=== PATIENT | male | born 1955 | race Caucasian/White ===

== ENCOUNTER 2020-07-04 14:28 | Inpatient (IN) | payer MEDICARE, OTHER ==
[~2020-07-04] VITALS: Ht 180.3 cm; Wt 48.7 kg
[2020-07-04] MEDS ORDERED: MVI, ADULT NO.4 WITH VIT K 10 ML, FOLIC ACID INJ 1 MG, THIAMINE INJ 100 MG in IV NORMAL... IV ONE (14:45)
--- NOTE | 2020-07-04 14:54 | PHYS DOC ---
Past History Past Medical History: COPD, GERD (RODOLFO SANCHEZ APRN) Adult General Chief Complaint Chief Complaint: FATIGUE HPI HPI Patient is a male patient with history of COPD current smoker, acid reflux, who presents to the ED today to be evaluated for generalized weakness/failure to thrive. Patient resides at home alone and the landlord's brother went to check with him, they found patient crawling on the floor and weak. Patient states his not had anything to eat or drink for couple days but has been drinking shots every day including 3 shots of Vodka yesterday. Denies any nausea, vomiting, diarrhea. (RODOLFO SANCHEZ APRN) Review of Systems Review of Systems Constitutional: Reports generalized weakness. Denies fever or chills [] Eyes: Denies change in visual acuity, redness, or eye pain [] HENT: Denies nasal congestion or sore throat [] Respiratory: Denies cough or shortness of breath [] Cardiovascular: No additional information not addressed in HPI [] GI: Denies abdominal pain, nausea, vomiting, bloody stools or diarrhea [] : Denies dysuria or hematuria [] Musculoskeletal: Denies back pain or joint pain [] Integument: Denies rash or skin lesions [] Neurologic: Denies headache, focal weakness or sensory changes [] All other systems were reviewed and found to be within normal limits, except as documented in this note. (RODOLFO SANCHEZ APRN) Current Medications Current Medications Current Medications Medications (Trade) Dose Ordered Sig/Marilyn Start Time Stop Time Status Last Admin Dose Admin Multivitamins/ Minerals 10 ml/ Folic Acid 1 mg/ Thiamine HCl 100 mg/Sodium Chloride 1,011.3 ml @ 1,000.187 mls/hr 1X ONCE 07/04/20 14:45 07/04/20 15:45 (RODOLFO SANCHEZ APRN) Allergies Allergies Allergies Coded Allergies Type Severity Reaction Last Updated Verified Penicillins Allergy Unknown 07/04/20 Yes codeine Allergy Unknown 07/04/20 Yes (RODOLFO SANCHEZ APRN) Physical Exam Physical Exam Constitutional: Thin appearing emaciated patient, no acute distress, non-toxic appearance. Patient appears unkept. HENT: Normocephalic, atraumatic, bilateral external ears normal, oropharynx moist, no oral exudates, nose normal. [] Eyes: PERRLA, EOMI, conjunctiva normal, no discharge. [] Neck: Normal range of motion, no tenderness, supple, no stridor. [] Cardiovascular:Heart rate regular rhythm, no murmur [] Lungs & Thorax: Currently coughing. Bilateral breath sounds clear to auscultation [] Abdomen: Bowel sounds normal, soft, no tenderness, no masses, no pulsatile masses. [] Skin: Warm, dry, no erythema, no rash. [] Back: No tenderness, no CVA tenderness. [] Extremities: No tenderness, no cyanosis, no clubbing, ROM intact, no edema. [] Neurologic: Alert and oriented X 3, normal motor function, normal sensory function, no focal deficits noted. Cranial nerves II through XII intact Psychologic: Affect normal, judgement normal, mood normal. [] (RODOLFO SANCHEZ APRN) EKG EKG [address] Singletary sinus rhythm, HR 90, normal axis and rate no STEMI (RODOLFO SANCHEZ APRN) Radiology/Procedures Radiology/Procedures []PROCEDURE: PORTABLE CHEST 1V EXAM: CT Head without IV contrast INDICATION: Reason: weakness / Spl. Instructions: / History: TECHNIQUE: Multi-detector row CT images were obtained of the head without the use of IV contrast. All CT scans performed at this facility utilize dose optimization techniques as appropriate to the exam, including the following: Automated exposure control and adjustment of the mA and/or KV according to patient size (this includes techniques or standardized protocols for targeted exams where dose is indication/reason for exam). COMPARISON: None FINDINGS: BRAIN PARENCHYMA: No evidence of acute intraparenchymal hemorrhage or infarct. No abnormal parenchymal density or mass. VENTRICLES & EXTRA-AXIAL SPACES: Ventricles are within normal limits. Basilar cisterns are patent. No pathologic extra-axial fluid collection or mass. ORBITS: Orbital contents are unremarkable. SINUSES: Visualized paranasal sinuses and mastoid air cells are clear. OSSEOUS & SOFT TISSUES: Calvarium and skull base are intact. IMPRESSION: No acute intracranial pathology. EXAM: CT HEAD WO CONTRAST, PORTABLE CHEST 1V INDICATION: Reason: weakness / Spl. Instructions: / History: . TECHNIQUE: Single view COMPARISON: None FINDINGS: The heart size is normal. The great vessels appear unremarkable. There is no hilar or mediastinal mass. The lungs are hyperlucent in a pattern consistent with underlying COPD. Hyperlucency is especially notable at the right greater than left lung apices and at the left lung base.. There is no pleural effusion or pneumothorax. There are no significant osseous abnormalities. Old mid shaft right clavicular fracture is noted. IMPRESSION: Bullous emphysema with no single view radiographic evidence of active cardiopulmonary disease. Electronically signed by: María Contreras MD (07/04/2020 3:20 PM) [id number] DICTATED AND SIGNED BY: MARÍA CONTRERAS MD DATE: 07/04/20 1520 CC: RODOLFO SANCHEZ APRN; PCP,UNKNOWN ~ (RODOLFO SANCHEZ APRN) Heart Score Risk Factors: Risk Factors: DM, Current or recent (<one month) smoker, HTN, HLP, family history of CAD, obesity. Risk Scores: Risk Factors: DM, Current or recent (<one month) smoker, HTN, HLP, family history of CAD, obesity. (RODOLFO SANCHEZ APRN) Course & Med Decision Making Course & Med Decision Making Pertinent Labs and Imaging studies reviewed. (See chart for details) This is a 65-year-old male patient presenting to the ED today from home, patient lives at home alone and was found with his landlord's brother crawling on his feet because he is weak and not able to get around. Patient states has not had anything significant to eat or drink for acouple days though he states he has been drinking vodka shots daily including [address] of the head is negative for any acute findings, chest x-ray is negative. Hemoglobin 11.1 hematocrit 33.3, and no history of anemia. Sodium 127, potassium 1.8. Glucose 79. Magnesium 1.5. Alcohol level [address] Bond who accepted patient for evaluation. Patient was started on potassium in the ED, Dr. Bond stated he will take over patient's orders including potassium management. (RODOLFO SANCHEZ APRN) Course & Med Decision Making I discussed the care of the patient with the [facility]IO/PA. I also personally saw patient and repeated certain aspects of history and physical exam. I oversaw ED management until eventual transfer to [facility] for continued inpat ient care. I agree with the findings and plan of care as documented in the note above. (GRISEL SINGLETARY DO) Mathewon Disclaimer Dragon Disclaimer This electronic medical record was generated, in whole or in part, using a voice recognition dictation system. (RODOLFO SANCHEZ APRN) Departure Departure: Impression: Primary Impression: Generalized weakness Additional Impressions: Hyponatremia Failure to thrive Hypomagnesemia Disposition: 09 ADMITTED INPT THIS HOSP Admitting Physician: Hunter Bond (GRISEL SINGLETARY DO) Condition: STABLE Referrals: PCP,UNKNOWN (PCP) Problem Qualifiers Additional Impressions: Failure to thrive Failure to thrive age range: in adult Qualified Codes: R62.7 - Adult failure to thrive RODOLFO SANCHEZ APRN Jul 04, 2020 14:54 GRISEL SINGLETARY DO Jul 05, 2020 21:09
[2020-07-04 15:16] LABS: BASO # 0.1 x10^3/uL (0.0-0.2); BASO % 1 % (0-3); EOS % 1 % (0-3); HEMATOCRIT 33.3 % (39.0-53.0); HEMOGLOBIN 11.3 g/dL (13.0-17.5); LYMPH % 22 % (24-48); MEAN CORPUSCULAR HEMOGLOBIN 37 pg (25-35); MEAN CORPUSCULAR HGB CONC 34 g/dL (31-37); MEAN CORPUSCULAR VOLUME 110 fL (79-100); MONO # 0.7 x10^3/uL (0.0-1.1); MONO % 8 % (0-9); NEUT # 6.3 x10^3uL (1.8-7.7); NEUT % 69 % (31-73); PLATELET COUNT 265 x10^3/uL (140-400); RED BLOOD COUNT 3.03 x10^6/uL (4.30-5.70); WHITE BLOOD COUNT 9.1 x10^3/uL (4.0-11.0)
--- NOTE | 2020-07-04 15:22 | RAD ---
EXAM: CT Head without IV contrast INDICATION: Reason: weakness / Spl. Instructions: / History: TECHNIQUE: Multi-detector row CT images were obtained of the head without the use of IV contrast. All CT scans performed at this facility utilize dose optimization techniques as appropriate to the exam, including the following: Automated exposure control and adjustment of the mA and/or KV according to patient size (this includes techniques or standardized protocols for targeted exams where dose is indication/reason for exam). COMPARISON: None FINDINGS: BRAIN PARENCHYMA: No evidence of acute intraparenchymal hemorrhage or infarct. No abnormal parenchymal density or mass. VENTRICLES & EXTRA-AXIAL SPACES: Ventricles are within normal limits. Basilar cisterns are patent. No pathologic extra-axial fluid collection or mass. ORBITS: Orbital contents are unremarkable. SINUSES: Visualized paranasal sinuses and mastoid air cells are clear. OSSEOUS & SOFT TISSUES: Calvarium and skull base are intact. IMPRESSION: No acute intracranial pathology. EXAM: CT HEAD WO CONTRAST, PORTABLE CHEST 1V INDICATION: Reason: weakness / Spl. Instructions: / History: . TECHNIQUE: Single view COMPARISON: None FINDINGS: The heart size is normal. The great vessels appear unremarkable. There is no hilar or mediastinal mass. The lungs are hyperlucent in a pattern consistent with underlying COPD. Hyperlucency is especially notable at the right greater than left lung apices and at the left lung base.. There is no pleural effusion or pneumothorax. There are no significant osseous abnormalities. Old mid shaft right clavicular fracture is noted. IMPRESSION: Bullous emphysema with no single view radiographic evidence of active cardiopulmonary disease. Electronically signed by: Anamaria Contreras MD (07/04/2020 3:20 PM) [id number]
--- NOTE | 2020-07-04 15:26 | EKG ---
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
[2020-07-04 15:38] LABS: ALBUMIN/GLOBULIN RATIO 0.8 (1.0-1.7); CREATININE 0.8 mg/dL (0.7-1.3); GFR 97.3; MAGNESIUM 1.5 mg/dL (1.8-2.4); TOTAL BILIRUBIN 1.7 mg/dL (0.2-1.0); TOTAL PROTEIN 6.9 g/dL (6.4-8.2)
[2020-07-04 15:40] LABS: POTASSIUM 1.8 mmol/L (3.5-5.1)
[2020-07-04] MEDS ORDERED: POTASSIUM CL 40MEQ IN 0.9%NACL 1,000 ML IV ONE (16:00)
[2020-07-04] MEDS ORDERED: POTASSIUM CHLORIDE 20 MEQ TABLET.ER. PO ONE (16:00)
[2020-07-04] MEDS ORDERED: MAGNESIUM SULFATE 1GM 100 ML IV ONE (16:00)
[2020-07-04 16:28] LABS: BILIRUBIN,URINE NEG (NEG); CLARITY,URINE CLEAR; COLOR,URINE YELLOW; GLUCOSE,URINE NEG (NEG)
[2020-07-04 16:29] LABS: NITRITE,URINE NEG (NEG)
[2020-07-04] MEDS ORDERED: ONDANSETRON PF 4 MG/2 ML VIAL. IVP PRN (16:30)
[2020-07-04 16:33] LABS: BACTERIA,URINE MANY /HPF (0-FEW); RBC,URINE 0 /HPF (0-2)
--- NOTE | 2020-07-04 17:58 | HP ---
ADMIT DATE: 07/04/2020 ATTENDING PHYSICIAN: Juvenal Ferrell MD CHIEF COMPLAINT: Weakness. HISTORY OF PRESENT ILLNESS: The patient is a 65-year-old gentleman, chronic alcoholic, who presented to the ED profoundly weak and failed to thrive. He drinks actively, lives alone. His landlord's brother went to check on him, they found crawling on the floor, too weak to get up. He has not had anything to eat for the last couple of days, but has been drinking whiskey including earlier this morning. No nausea, vomiting or diarrhea. No hematemesis. In the ED, he was found to have a potassium level 1.8 mEq, sodium 127, bilirubin is 1.7 mg%. On exam, he is quite cachectic and weak. He is clinically dehydrated. He is admitted then for further treatment of his ravages to chronic alcoholism. PAST MEDICAL HISTORY: Significant for chronic alcoholism, COPD, and gastroesophageal reflux disease. ALLERGIES: HE HAS ALLERGIES TO PENICILLIN AND CODEINE, exact reactions unclear. SOCIAL HISTORY: He is a smoker and drinker as noted. He denies any diagnosed history of depression. FAMILY HISTORY: Unobtainable. REVIEW OF SYSTEMS: Significant for generalized weakness. He is found ____ his own stool. He is quite disheveled. His socks are filthy. He has toenails that have not been trimmed in several years. All other systems reviewed and turned to be negative. PHYSICAL EXAMINATION: GENERAL: When I saw him, this is a very disheveled gentleman appearing older than stated age. VITAL SIGNS: Initial vital signs in the ED showed a blood pressure of 101/75, pulse 85 and regular, oxygen saturation 96% on room air, temperature is 98.0 degrees Fahrenheit, weight is 47 kilograms, which amounts to about 102 pounds. HEENT: Head is without trauma. Pupils are reactive. Sclerae are nonicteric. Oropharynx clear. Mucous membranes dry. NECK: Supple, no bruits. LUNGS: Otherwise, clear to auscultation. CARDIOVASCULAR: Showed distant heart tones. No gallops. ABDOMEN: Soft, scaphoid, nontender. I did not palpate the liver span below the right costal margin. Bowel sounds are hypoactive. EXTREMITIES: Showed significant muscle wasting, weakness. He is nonambulatory. He is quite disheveled and hygiene is definitely ____. NEUROLOGIC: Flat affect and nonambulatory. He is aware of what is going on. PERTINENT LABORATORY STUDIES: His sodium is 127 mEq, potassium 1.8 mEq per liter. Creatinine is 0.8 mg/dL. Cardiac enzymes negative. Transaminases unremarkable. Bilirubin total is 1.7 mg%. Alcohol level was 62 mg/dL. Hemoglobin 11.3 g, white count 9100. The obligatory CT of the head showed no acute strokes or intracranial pathology. The chest x-ray on admission showed hyperexpansion and COPD changes without any acute infiltrate. Heart size within normal limits. ASSESSMENT: 1. A 65-year-old gentleman with acute on chronic alcoholism. 2. Dehydration. 3. Electrolyte abnormalities with severe hypokalemia and hyponatremia. 4. Chronic obstructive pulmonary disease. 5. Generalized debilitation. 6. Underlying depression. 7. Neglect. PLAN: 1. Admit to the inpatient unit. 2. IV hydration with saline and potassium supplementation. 3. Serial chemistries. 4. Diet as tolerated. 5. Social service consult to address discharge planning. 6. Diet as tolerated. JUVENAL FERRELL MD DR: YANDEL/shavonne JOB#: [id number] / [id number]
--- NOTE | 2020-07-04 18:45 | NUR ---
The patient, MARIELOS WHITE, 65 y/o, M admitted by JUVENAL FERRELL MD, was given written information regarding hospital policies, unit procedures and contact persons. Pt arrived on previous shift to room 113. Per report, pt was covered in feces and was immediately assisted to shower. Pt lives at home alone and has not been caring for himself appropriately. Hx of ETOH abuse. Pt with a critical potassium of 1.8. Orders received to replace K+. Pt placed on telemetry, showing Sinus Tach with rate in the 100's. Pt A/Ox4, but poor historian. POC discussed, V/U. Call light in reach. Valuables were checked and logged.
[2020-07-04] MEDS ORDERED: FLU VACC QS 2020-21(6MOS+)/PF 0.5 ML SYRINGE. VAX IM ONE (20:00)
[2020-07-04] MEDS: POTASSIUM CHLORIDE 20 MEQ TABLET.ER. PO SCH (20:07)
[2020-07-04] MEDS: POTASSIUM CL 40MEQ IN 0.9%NACL 1,000 ML IV SCH (20:09)
[2020-07-04 20:14] VITALS: BP 107/77
[2020-07-05 00:05] VITALS: BP 93/61
[2020-07-05] MEDS: POTASSIUM CL 40MEQ IN 0.9%NACL 1,000 ML IV SCH ×2 (05:45→15:57)
[2020-07-05 06:03] VITALS: BP 95/66
[2020-07-05 07:02] LABS: CALCIUM 7.7 mg/dL (8.5-10.1); CREATININE 0.6 mg/dL (0.7-1.3); GFR 135.6
[2020-07-05 07:17] LABS: POTASSIUM 2.8 mmol/L (3.5-5.1)
[2020-07-05] MEDS: MAGNESIUM SULFATE 1GM 100 ML IV SCH (08:08)
[2020-07-05] MEDS: POTASSIUM CHLORIDE 20 MEQ TABLET.ER. PO SCH ×2 (08:09→16:00)
[2020-07-05] MEDS ORDERED: FLU VACC QS 2020-21(6MOS+)/PF 0.5 ML SYRINGE. VAX IM ONE (09:00)
[2020-07-05 11:07] VITALS: BP 100/67
--- NOTE | 2020-07-05 11:42 | NUR ---
NSG NOTE; PT STATES THAT HE ONLY DRINKS 2-3 SHOTS 2-3 TIMES WEEKLY. WILL CONTINUE TO MONITOR FOR ALCOHOL WITHDRAWAL S/S
[2020-07-05 15:14] VITALS: BP 91/63
[2020-07-05 20:27] VITALS: BP 93/62
[2020-07-05 22:49] VITALS: BP 89/59
[2020-07-06] VITALS (7 sets, daily range): BP systolic 74–97; BP diastolic 53–66
[2020-07-06] MEDS: POTASSIUM CL 40MEQ IN 0.9%NACL 1,000 ML IV SCH ×3 (02:08→21:45)
--- NOTE | 2020-07-06 02:48 | PN ---
DATE: 07/05/2020 ATTENDING PHYSICIAN: Dr. Ferrell. SUBJECTIVE: The patient is alert, he is sober. He is quite calm. There is no impending delirium tremens at this time. OBJECTIVE FINDINGS: VITAL SIGNS: Blood pressure today is 95/66 mmHg, pulse 81 and regular, temperature 98.1 degrees Fahrenheit, oxygen saturation 99% on room air. HEENT: Head is without trauma. Pupils are reactive. Sclerae nonicteric. Oropharynx is clear. He has very poor dental repair. NECK: Supple. No stridor. LUNGS: Otherwise clear. CARDIOVASCULAR: Showed regular heart tones. ABDOMEN: Soft, no guarding, no masses. EXTREMITIES: Without edema. He has significant muscle wasting. His fingernails and toenails have not been trimmed for years. He is nonambulatory at this time. LABORATORY DATA: Potassium on admission was 1.8 mEq per liter, it is now up to 2.8 mEq; sodium is improved to 131 mEq per liter. Creatinine 0.6 mg/dL. Nonfasting blood sugar 79. Transaminases were normal. ASSESSMENT: 1. A 65-year-old gentleman with acute and chronic alcoholism. 2. Dehydration. 3. Electrolyte abnormalities with severe hypokalemia and hyponatremia. 4. Chronic obstructive pulmonary disease. 5. Generalized debilitation. 6. Underlying depression. 7. Horrible neglect. PLAN: 1. Continue IV hydration with saline and potassium supplementation. 2. Oral potassium supplementation. 3. Magnesium replacement. 4. Diet as tolerated. 5. Serial chemistries. 6. security services specialist consult to address discharge planning. JUVENAL FERRELL MD DR: YANDEL/shavonne JOB#: [id number] / [id number]
[2020-07-06 06:32] LABS: CALCIUM 7.9 mg/dL (8.5-10.1); CREATININE 0.5 mg/dL (0.7-1.3); GFR 167.4
[2020-07-06] MEDS: POTASSIUM CHLORIDE 20 MEQ TABLET.ER. PO SCH ×2 (08:33→17:00)
[2020-07-06] MEDS: MAGNESIUM SULFATE 1GM 100 ML IV SCH (08:34)
[2020-07-06] MEDS: PANTOPRAZOLE 40 MG TABLET. PO SCH (10:25)
--- NOTE | 2020-07-06 15:12 | NUR ---
NURSING NOTE: VITAL SIGN CHANGE PT BP 74/56 AND 78/53, CHECKED IN BILATERAL ARMS. PT STATED HE IS DIZZY WHEN HE GETS UP. DR. GHASSAN LOPEZ. WILL CONTINUE TO MONITOR. NICOLE HODGES
--- NOTE | 2020-07-06 15:27 | NUR ---
VITAL CHANGE ORDERS RECEIVED FOR 1L NS BOLUS. FLUIDS STARTED. WILL CONTINUE TO MONITOR. NICOLE HODGES
[2020-07-06] MEDS ORDERED: IV NORMAL SALINE 1,000ML 1,000 ML IV ONE (15:30)
--- NOTE | 2020-07-07 01:21 | PN ---
DATE: 07/06/2020 ATTENDING PHYSICIAN: Dr. Ferrell. SUBJECTIVE: The patient is complaining of indigestion and reflux. I explained to him, this is due to alcoholic gastritis. He is sober, but he is in a most unfavorable move this morning. He is not very cooperative. There is no impending delirium tremens at this time. OBJECTIVE FINDINGS: VITAL SIGNS: Potassium was replaced up to 4.0 mEq per liter. Blood pressure is still marginal at 86/58, pulse 75 and regular, temperature 98.5 degrees Fahrenheit, oxygen saturation 92% on room air. HEENT: Head is without trauma. Pupils are reactive. Sclerae nonicteric. Oropharynx is clear. NECK: Supple, no bruits. LUNGS: Otherwise clear. CARDIOVASCULAR: Showed regular heart tones. ABDOMEN: Soft, no guarding. EXTREMITIES: Without edema. His fingernails and toenails have not been trimmed for years. He is nonambulatory at this time. LABORATORY DATA: Admission potassium was 1.8 mEq per liter, yesterday was up to 2.8, today is up to 4.0 mEq per liter. Creatinine is stable. Sugars are adequate. ASSESSMENT: 1. A 65-year-old gentleman with acute on chronic alcoholism. 2. Dehydration, rehydrated. 3. Electrolyte abnormalities with severe hypokalemia and hyponatremia. 4. Chronic obstructive pulmonary disease. 5. Generalized debilitation. 6. Underlying depression. 7. Horrible neglect. 8. He is still hypotensive from dehydration. PLAN: 1. Continue IV hydration. 2. Oral and potassium supplementation. 3. Magnesium replacement. 4. Diet as tolerated. 5. Serial chemistries. 6. caseworker protective services consult to address discharge planning. JUVENAL FERRELL MD DR: YANDEL/shavonne JOB#: [id number] / [id number]
[2020-07-07 07:14] LABS: CALCIUM 7.5 mg/dL (8.5-10.1); CREATININE 0.4 mg/dL (0.7-1.3); GFR 216.6; POTASSIUM 4.4 mmol/L (3.5-5.1)
[2020-07-07] MEDS: PANTOPRAZOLE 40 MG TABLET. PO SCH (07:58)
[2020-07-07] MEDS: MAGNESIUM SULFATE 1GM 100 ML IV SCH (07:59)
[2020-07-07] MEDS: POTASSIUM CHLORIDE 20 MEQ TABLET.ER. PO SCH (08:00)
[2020-07-07] MEDS: POTASSIUM CL 40MEQ IN 0.9%NACL 1,000 ML IV SCH ×2 (11:15→21:15)
[2020-07-07 11:21] VITALS: BP 93/63
[2020-07-07 15:11] VITALS: BP 127/85
[2020-07-07 18:59] VITALS: BP 90/58
[2020-07-07] MEDS: ACETAMINOPHEN 500 MG TABLET PO PRN (20:41)
[2020-07-07 23:54] VITALS: BP 93/58
--- NOTE | 2020-07-07 23:59 | PN ---
DATE: 07/07/2020 ATTENDING PHYSICIAN: Dr. Ferrell. SUBJECTIVE: Alert and sober. He is a little more sober this morning. No obvious distress. OBJECTIVE FINDINGS: VITAL SIGNS: Blood pressure is marginal still 97/66, pulse 77 and regular, temperature 98.6 degrees Fahrenheit, oxygen saturation 94% on room air. HEENT: Head is without trauma. Pupils are reactive. Sclerae nonicteric. Oropharynx clear. NECK: Supple. LUNGS: Clear. CARDIOVASCULAR: Showed regular heart tones. No gallops. ABDOMEN: Soft. EXTREMITIES: Without edema. NEUROLOGIC: Alert. He is nonambulatory. He has no focal deficits. SKIN: Otherwise, warm and dry. LABORATORY DATA: Potassium level has been improved to normal at 4.4 mEq. ASSESSMENT: 1. A 65-year-old gentleman with acute on chronic alcoholism. 2. Dehydration, still with marginal blood pressures. 3. Severe hypokalemia, corrected. 4. Hyponatremia, corrected. 5. Chronic obstructive pulmonary disease. 6. Generalized debilitation. 7. Horrible neglect. 8. Underlying depression. PLAN: 1. I will continue IV hydration. 2. Oral potassium supplementation as noted. 3. Diet as tolerated. 4. Serial chemistry. 5. surgical services director to address discharge planning. JUVENAL FERRELL MD DR: YANDEL/shavonne JOB#: [id number] / [id number]
[2020-07-08] MEDS: ACETAMINOPHEN 500 MG TABLET PO PRN (04:02)
[2020-07-08 05:15] VITALS: BP 137/71
--- NOTE | 2020-07-08 06:20 | NUR ---
Pt up to [facility] every 1-2 hours. He struggles with urge incontinence of bowel and bladder. Pt uses walker to steady himself when walking or to turn and pivot. Pt c/o pain in lower back, worse with movement. Tx with Tylenol and rest. Will continue to monitor.
[2020-07-08] MEDS: POTASSIUM CL 40MEQ IN 0.9%NACL 1,000 ML IV SCH (07:15)
[2020-07-08] MEDS: PANTOPRAZOLE 40 MG TABLET. PO SCH (08:18)
[2020-07-08 11:41] VITALS: BP 105/68
[2020-07-08 15:54] VITALS: BP 113/76
[2020-07-08 19:19] VITALS: BP 116/81
--- NOTE | 2020-07-08 20:57 | PN ---
DATE: 07/08/2020 ATTENDING PHYSICIAN: Dr. Ferrell. SUBJECTIVE: The patient is alert. He is cooperative this morning, he feels better. OBJECTIVE FINDINGS: VITAL SIGNS: Blood pressure is up today to 137/71 mmHg, pulse of 73 and regular, temperature 98.0 degrees Fahrenheit, oxygen saturation 98% on room air. HEENT: Head is without trauma. Pupils are reactive. Sclerae nonicteric. Oropharynx is clear. NECK: Supple, no bruits. LUNGS: Good breath sounds. CARDIOVASCULAR: Irregular heart tones. No gallops. ABDOMEN: Soft. EXTREMITIES: Without edema. NEUROLOGIC: Focally alert. No impending withdrawals. He is stronger today. ASSESSMENT: 1. A 65-year-old gentleman with acute on chronic alcoholism. 2. Dehydration, rehydrated. Blood pressure is improved. 3. Severe hypokalemia, corrected. 4. Hyponatremia, corrected. 5. Chronic obstructive pulmonary disease. 6. Generalized debilitation. 7. Horrible neglect. PLAN: 1. We can stop IV fluids. 2. Oral potassium supplement as ordered. 3. Diet as ordered. 4. Tentative plans for going home tomorrow. He has refused any higher level of care. JUVENAL FERRELL MD DR: YANDEL/shavonne JOB#: [id number] / [id number]
[2020-07-08 23:14] VITALS: BP 127/81
[2020-07-09 05:12] VITALS: BP 152/82
[2020-07-09] MEDS: PANTOPRAZOLE 40 MG TABLET. PO SCH (07:28)
--- NOTE | 2020-07-09 10:02 | DS ---
DATE OF DISCHARGE: 07/09/2020 DATE OF DISCHARGE: 07/09/2020. ATTENDING PHYSICIAN: Dr. Ferrell. FINAL DISCHARGE DIAGNOSES: 1. Acute on chronic alcoholism. 2. Dehydration, rehydrated. 3. Severe hypokalemia and hyponatremia. 4. Chronic obstructive pulmonary disease. 5. Generalized debilitation. 6. Underlying depression. 7. Alcoholic gastritis. 8. Neglect. HISTORY AND PHYSICAL: The patient is a 65-year-old gentleman, chronic alcoholic, presented to the ED. His landlord found him crawling on the floor, unable to walk. He is quite disheveled. His toenails and fingernails have not been trimmed in years. He had a potassium level on admission of 1.8 mEq per liter and a sodium 127 mEq per liter. PHYSICAL EXAMINATION: Please see my dictated note. PERTINENT LABORATORY AND X-RAY STUDIES: Chemistry panel on admission showed a sodium of 127, repeated was 131, 132 and 134 the next 3 days. Potassium was replaced up to 2.8, 4.0 and 4.4 mEq per liter, respectively. Creatinine stayed stable at 0.4 mg/dL. Magnesium was replaced. Total bilirubin is 1.7. Cardiac enzymes negative for coronary ischemia. Urinalysis unremarkable. Admission ethyl alcohol level was 62. Hemoglobin maintained 11.3 grams with a white count of 9100. COURSE IN THE HOSPITAL: The patient received 4 full days of intravenous IV fluids with improvement of his blood pressure. Initially, he had been low. Prior to discharge, it was up to 127/81, pulse is 94 and regular. He was afebrile. His oxygen saturation is 97%. We replaced his potassium and magnesium. Diet was advanced and I treated him with Nexium for resolution of his epigastric pain. On the sixth hospital day, he wanted to go home. We tried to get him to extended care facility. He declined. Therefore, I wrote him a script for Nexium 40 mg p.o. daily and Percocet 10/325 one p.o. q. 6 hours p.r.n. chronic pain. He will follow up with his primary care physician as scheduled. Strong encouragement to avoid further alcohol use, whether or not he quits drinking is to be seen. The patient was then discharged from our hospital in stable condition with explicit instructions and followup care. JUVENAL FERRELL MD DR: YANDEL/shavonne JOB#: [id number] / [id number]
[2020-07-09 10:44] VITALS: BP 106/66
--- NOTE | 2020-07-09 11:17 | NUR ---
DISCHARGE NOTE-Pt discharged to home with home health services at 1112. PIV discontinued. Wheeled to door in w/c, no O2 or other devices in use. Discharge papers sent with patient, as well as prescriptions. Pt denies any questions regarding discharge plan, et verbalizes understanding of instructions. Pt declined to sign DC sheet after review of DC info, as his "hands are too shaky." All possessions are sent with patient.
== END 2020-07-09 11:12 | disposition home health service (06) | DRG 641 ==
LOC: ER 14:28 → 1 SOUTH 15:51 → ER 18:25
PROVIDERS: ADMIT Hospitalist; ATTEND Hospitalist
DX: E86.0 Dehydration (principal); E44.0 Moderate protein-calorie malnutrition; R64 Cachexia; Z68.1 Body mass index [BMI] 19.9 or less, adult; K29.20 Alcoholic gastritis without bleeding; E87.1 Hypo-osmolality and hyponatremia; E87.6 Hypokalemia; E83.42 Hypomagnesemia; F10.20 Alcohol dependence, uncomplicated; F17.200 Nicotine dependence, unspecified, uncomplicated; F32.9 Major depressive disorder, single episode, unspecified; J43.9 Emphysema, unspecified; K21.9 Gastro-esophageal reflux disease without esophagitis; R62.7 Adult failure to thrive; I95.9 Hypotension, unspecified; G89.29 Other chronic pain; Z88.8 Allergy status to other drugs, medicaments and biological substances; Z88.0 Allergy status to penicillin; Z79.899 Other long term (current) drug therapy; Z60.2 Problems related to living alone
CPT/HCPCS: 36415; 70450; 71045; 80048; 80053; 81001; 82553; 83690; 83735; 84443; 84484; 85025; 85610; 85730; 87077; 87086; 90471; 90686; 93005; 96365; 96367; 99406; G0480; J3475; 97110; 97116; 97530; 97535; 99285-25; J7030

== ENCOUNTER 2020-09-17 02:25 | Inpatient (IN) | payer MEDICARE, MEDICAID ==
[~2020-09-17] VITALS: Ht 180.3 cm; Wt 47.3 kg
--- NOTE | 2020-09-17 02:29 | PHYS DOC ---
Past History Past Medical History: Alcoholism, Anemia, Arthritis, COPD, Depression, GERD, Other Past Surgical History: No Surgical History Smoking: Cigarettes Alcohol Use: Heavy General Adult HPI: HPI: "..Oh... I don't know.. just weak.. ..cold...hurt all over..bones..muscle hurt..shaky...".." to weak to move..".. " I an't drinking anything.. the last 3 days.. " Patient is a 65 year old male who presents with increased malaise, arthralgia, myalgia, weakness and fatigue. Pt. neighbor went to the bring him some food. Neighbor found him on his couch laying in stool. Patient was unable to stand or or set up because of weakness. Patient appeared to be having shaking chills. Patient has a past medical history of chronic alcohol abuse. Patient states he drinks until he can drink no more, usually bourbon. Patient denies drinking tonight. Patient lives alone. Patient has a previous admission in June for failure to thrive and profound weakness. Patient denies any nausea or vomiting or diarrhea. However apparently has had incontinence of stool. Has multiple layers of stool caked on his body. Stool almost covers every part of his body at least partially. Stool appears to be different colors and from different stooling episodes. Patient is conversant does not know the day or month. Patient does weakly move all extremities on request. Pt. needs assistance even to just set up. Patient gives a past history of COPD, GERD, chronic alcohol abuse, dehydration, hypokalemia, hyponatremia, cachectic and severe malnutrition. Review of Systems: Review of Systems: Constitutional: Complaints of chills Eyes: Denies change in visual acuity HENT: Denies nasal congestion or sore throat Respiratory: Complaints of shortness of breath Cardiovascular: Denies chest pain or edema GI: Denies abdominal pain, nausea, vomiting, bloody stools or diarrhea : Denies dysuria Musculoskeletal: Complaints of generalized pain muscles and bones. Integument: Denies rash Neurologic: Denies headache, focal weakness or sensory changes Endocrine: Denies polyuria or polydipsia Lymphatic: Denies swollen glands Psychiatric: Admit to depression, but denies suicidal ideation Family History: Family History: Not currently available Current Medications: Current Meds: See nursing for home meds Allergies: Allergies: Allergies Coded Allergies Type Severity Reaction Last Updated Verified Penicillins Allergy Unknown 07/04/20 Yes codeine Allergy Unknown 07/04/20 Yes Physical Exam: PE: Constitutional: Moderate acute distress, chronically ill and mal nourished in appearance. [] Long unkept melton and hair laced with stool. Disheveled. HENT: Normocephalic, atraumatic, bilateral external ears normal, oropharynx dry,, no oral exudates, nose normal. Very poor dentition. Eyes: PERRLA, EOMI, conjunctiva pale, no discharge. Loss of periorbital fat. Neck: Normal range of motion, no tenderness, supple, no stridor. [] Cardiovascular: Tachycardia heart rate regular rhythm, no murmur [] Lungs & Thorax: Bilateral breath sounds equal apex with scattered wheezes on auscultation [] Abdomen: Bowel sounds decreased, soft, no tenderness, no masses, no pulsatile masses. [] Skin: Warm, dry, , no rash. Very poor turgor. Sacral erythema-but no obvious complete breakdown of skin at sacrum. Appears to have at least some fecal material almost every inch of his body. Very long toenails and fingernails embedded with stool obviously not trimmed for possibly years. Extremities: Generalized tenderness, no cyanosis, no clubbing, ROM intact, no edema. Arthritic changes. Muscle loss-overall generalized malnutrition in appearance Neurologic: Alert and oriented to name and knows he is in a hospital,did not know date, moves all extremities on request but weakly, decreased distal plantar sensation Psychologic: Affect flat, judgement appears impaired, mood depressed affect. Denies suicidal ideation. EKG: EKG: My interpretation of EKG shows a irregular rhythm and ED regular rate. Does have low voltage, ventricle strain. Overall rhythm appears to be A. fib with a ventricular rate of 96. Radiology/Procedures: Radiology/Procedures: [][address] [address] IMAGING REPORT Signed PATIENT: MARIELOS WHITE LACCOUNT: [id number] : 1955 LOCATION: ER AGE: 65 SEX: M EXAM STATUS: REG ER ORD. PHYSICIAN: FOUZIA MCKENZIE MD REASON: dyspnea PROCEDURE: PORTABLE CHEST 1V XR CHEST 1V Clinical Indication: Reason: dyspnea Comparison: AP chest, July 04, 2020. Findings: Atherosclerotic aortic arch. The cardiomediastinal silhouette is normal. There is upper lung emphysema. The lungs are hyperexpanded. Lungs are clear. There is no pneumothorax. No pleural effusion is appreciated. No acute bone abnormality. IMPRESSION: 1. No acute cardiopulmonary process. 2. COPD. Electronically signed by: Jerald Persaud MD (09/17/2020 4:50 AM) [facility] DICTATED AND SIGNED BY: JERALD PERSAUD MD DATE: 09/17/20 0448 CC: FOUZIA MCKENZIE MD; PCP,NO ~MTH0 0 Heart Score: HEART Score for Chest Pain: HEART Score for Chest Pain Response (Comments) Value History Moderately Suspicious 1 ECG Nonspecific Repolarizatio 1 Age >45 - < 65 1 Risk Factors 1 or 2 Risk Factors 1 Troponin < Normal Limit 0 Total 4 Risk Factors: Risk Factors: DM, Current or recent (<one month) smoker, HTN, HLP, family history of CAD, obesity. Risk Scores: Score 0 - 3: 2.5% MACE over next 6 weeks - Discharge Home Score 4 - 6: 20.3% MACE over next 6 weeks - Admit for Clinical Observation Score 7 - 10: 72.7% MACE over next 6 weeks - Early Invasive Strategies Course & Med Decision Making: Course & Med Decision Making Pertinent Labs and Imaging studies reviewed. (See chart for details) Critical care 90 minutes Discussed presentation, testing and tx. plan with Dr. Bond. Request 1 gm Mag. IV. PO potassium. Impression: 1. Severe Weakness and Fatigue 2. Hypokalemia 1.8 3. Hyponatremia 128 4. Anemia hemoglobin 11.6 with macrocytic indices 104 and thrombocytopenia 75 5. Afib 6. Elevated Lactic Acid 4.1 7. UTI- Cath. Urine > 40 WBC 8. Elevated D-dimer 0.90 9. DM = glucose 183 10. Self Neglect 11. Severe Malnutrition Alb. 2.6 12. Peripheral Neuropathy 13. Hx. alcohol abuse- ( Reports no bourbon or alcohol intake for last 3 days- ETOH ,<10) 14. High risk for re- admission [] Dragon Disclaimer: Dragon Disclaimer: This electronic medical record was generated, in whole or in part, using a voice recognition dictation system. Departure Departure: Referrals: PCP,NO (PCP) Scripts No Active Prescriptions or Reported Meds Dragon Disclaimer This chart was dictated in whole or in part using Voice Recognition software in a busy, high-work load, and often noisy Emergency Department environment. It may contain unintended and wholly unrecognized errors or omissions. Dragon Disclaimer This chart was dictated in whole or in part using Voice Recognition software in a busy, high-work load, and often noisy Emergency Department environment. It may contain unintended and wholly unrecognized errors or omissions. FOUZIA MCKENZIE MD Sep 17, 2020 02:29
[2020-09-17] MEDS ORDERED: IV RINGERS SOLUTION,LACTATED 1,000 ML IV SCH (03:00)
[2020-09-17] MEDS ORDERED: FOLIC ACID 1 MG TABLET PO ONE (03:15)
[2020-09-17] MEDS ORDERED: MVI, ADULT NO.4 WITH VIT K 10 ML, THIAMINE INJ 100 MG in IV RINGERS SOLUTION,LACTATED 1... IV ONE (03:15)
[2020-09-17 04:02] LABS: BASO % 0 % (0-3); EOS % 0 % (0-3); HEMATOCRIT 32.9 % (39.0-53.0); HEMOGLOBIN 11.1 g/dL (13.0-17.5); LYMPH # 1.4 x10^3/uL (1.0-4.8); LYMPH % 22 % (24-48); MEAN CORPUSCULAR HEMOGLOBIN 35 pg (25-35); MEAN CORPUSCULAR HGB CONC 34 g/dL (31-37); MEAN CORPUSCULAR VOLUME 104 fL (79-100); MONO # 0.2 x10^3/uL (0.0-1.1); MONO % 3 % (0-9); NEUT % 75 % (31-73); PLATELET COUNT 75 x10^3/uL (140-400); RED BLOOD COUNT 3.17 x10^6/uL (4.30-5.70); RED CELL DISTRIBUTION WIDTH 19.5 % (11.5-14.5); WHITE BLOOD COUNT 6.6 x10^3/uL (4.0-11.0)
[2020-09-17 04:22] LABS: BARBITURATES NEG (NEG); BENZODIAZEPINES POS (NEG); CANNABINOIDS NEG (NEG); COCAINE NEG (NEG); METHADONE NEG (NEG); OPIATES NEG (NEG); PHENCYCLIDINE NEG (NEG)
[2020-09-17 04:27] LABS: ANISOCYTOSIS SLIGHT; MICROCYTOSIS SLIGHT; PLT ESTIMATE DECREASED (ADEQUATE)
[2020-09-17 04:29] LABS: BACTERIA,URINE MANY /HPF (0-FEW); BILIRUBIN,URINE NEG (NEG); CLARITY,URINE CLOUDY; COLOR,URINE YELLOW; GLUCOSE,URINE NEG (NEG); NITRITE,URINE NEG (NEG); RBC,URINE OCC /HPF (0-2); SQUAMOUS EPITHELIAL CELL,UR OCC /LPF; WBC,URINE >40 /HPF (0-4)
[2020-09-17] MEDS ORDERED: THIAMINE 200 MG/2 ML VIAL. IV ONE (04:29)
[2020-09-17 04:36] LABS: AMPHETAMINE/METHAMPHETAMINE NEG (NEG)
[2020-09-17 04:37] LABS: ALBUMIN 2.6 g/dL (3.4-5.0); CALCIUM 8.4 mg/dL (8.5-10.1); CREATININE 1.2 mg/dL (0.7-1.3); DIRECT BILIRUBIN 0.4 mg/dL (0.0-0.2); MAGNESIUM 1.8 mg/dL (1.8-2.4); TOTAL BILIRUBIN 0.7 mg/dL (0.2-1.0); TOTAL PROTEIN 6.3 g/dL (6.4-8.2)
[2020-09-17] MEDS ORDERED: cefTRIAXone SODIUM 1 GM VIAL ONE (04:42)
[2020-09-17] MEDS ORDERED: IV NORMAL SALINE 50ML 50 ML ONE (04:42)
--- NOTE | 2020-09-17 04:46 | EKG ---
[address] [address] Test Date: 2020-09-17 Test Time: 03:52:12 Pat Name: MARIELOS WHITE Department: Room: Gender: M Executive Chairman Of The Board: EVELYN : 1955 Requested By: FOUZIA MCKENZIE Order Number: [id number] Reading MD: Measurements Intervals [place] Rate: 96 P: OR: QRS: 103 QRSD: 108 T: -17 QT: 390 QTc: 500 Interpretive Statements IRREGULAR RHYTHM, NO P-WAVE FOUND RIGHTWARD AXIS R-S TRANSITION ZONE IN V LEADS DISPLACED TO THE LEFT LOW LIMB LEAD VOLTAGE QRS(T) CONTOUR ABNORMALITY CONSISTENT WITH HIGH LATERAL INFARCT PROBABLY OLD ST & T ABNORMALITY, CONSIDER INFERIOR ISCHEMIA OR LEFT VENTRICULAR STRAIN ABNORMAL ECG RI6.02 No previous ECG available for comparison
[2020-09-17 04:52] LABS: BGAS PH 7.54 (7.35-7.46)
[2020-09-17 04:52] LABS: POTASSIUM 1.8 mmol/L (3.5-5.1)
--- NOTE | 2020-09-17 04:52 | RAD ---
XR CHEST 1V Clinical Indication: Reason: dyspnea Comparison: AP chest, July 04, 2020. Findings: Atherosclerotic aortic arch. The cardiomediastinal silhouette is normal. There is upper lung emphysem a. The lungs are hyperexpanded. Lungs are clear. There is no pneumothorax. No pleural effusion is olga reciated. No acute bone abnormality. IMPRESSION: 1. No acute cardiopulmonary process. 2. COPD. Electronically signed by: Gm Persaud MD (09/17/2020 4:50 AM) [facility] SHELBY COUNTYDebby
[2020-09-17] MEDS ORDERED: IV RINGERS SOLUTION,LACTATED 1,000 ML IV ONE (05:00)
[2020-09-17] MEDS ORDERED: ACETAMINOPHEN 325 MG TABLET PO PRN (05:15)
[2020-09-17] MEDS ORDERED: ONDANSETRON PF 4 MG/2 ML VIAL. IVP PRN (05:15)
[2020-09-17] MEDS ORDERED: POTASSIUM CHLORIDE 20 MEQ TABLET.ER. PO ONE (06:00)
[2020-09-17] MEDS ORDERED: POTASSIUM CHLORIDE 20MEQ 100 ML IV SCH (06:00)
[2020-09-17] MEDS ORDERED: MAGNESIUM SULFATE 1GM 100 ML IV ONE (06:00)
[2020-09-17 07:44] LABS: INFLUENZA A PATIENT NEGATIVE (NEGATIVE); INFLUENZA B PATIENT NEGATIVE (NEGATIVE)
[2020-09-17] MEDS ORDERED: IPRATRPIUM/ALBUTEROL 0.5/2.5MG 3 ML NEBU. NEB SCH (08:00)
[2020-09-17] MEDS ORDERED: APIXABAN 2.5 MG TABLET PO SCH (09:00)
[2020-09-17 09:39] VITALS: BP 85/49
--- NOTE | 2020-09-17 10:38 | HP ---
ADMIT DATE: 09/17/2020 ATTENDING PHYSICIAN: Dr. Ferrell. CHIEF COMPLAINT: Weakness. HISTORY OF PRESENT ILLNESS: The patient is a 65-year-old gentleman who lives alone. He is a chronic alcoholic. We had him on several occasions before. He has been most uncooperative in the past and refused to go to a fdc. He has burned many bridges and there is no family or friends to take care of him. He lives alone. Evidently, a neighbor found him on his couch, lying in his own stool and urine. He has been unable to get up to go to the bathroom and he just lies there and continues to abuse alcohol. I am not aware of, who is procuring his alcohol for him. He has some contacts that is able to get him alcohol, it is probably at least 2 days since his last drink. In the hospital when I saw him, he was in the midst of a witnessed partial complex seizure. He came about by the time I saw him. He states he is cold, he hurts all over. He has shakes. He has not had anything to eat for the last 3 days. He is clinically dehydrated, quite emaciated with a weight of about 102 pounds. His toenails have not been clipped for several years. He has significant physical findings of neglect. PAST MEDICAL HISTORY: From the chart indicates he has COPD, gastroesophageal reflux disease, chronic alcoholism, dehydration, hypokalemia, cachexia and severe protein-calorie malnutrition. CURRENT MEDICATIONS: None. DRUG ALLERGIES: PENICILLIN AND CODEINE, exact reactions unclear. FAMILY HISTORY: Unobtainable. REVIEW OF SYSTEMS: Significant for the problems that brought him here. He could not give further history. PHYSICAL EXAMINATION: GENERAL: When I saw him, this is a pale, cachectic patient who is just recovering from a witnessed seizure. INITIAL VITAL SIGNS: Showed a blood pressure 90/60, temperature 97.1 degrees Fahrenheit, pulse 90 and regular, respirations 18 and shallow, oxygen saturation 96% on room air. HEENT: Head is without trauma. Pupils are reactive. Sclerae are nonicteric. Orbits are sunken. NECK: Supple. No stridor or rhonchi. CARDIOVASCULAR: Showed distant heart tones. No gallops. LUNGS: Shallow respirations. No rhonchi. ABDOMEN: Scaphoid, nontender. Hypoactive bowel sounds. EXTREMITIES: Showed no edema. He has significant muscle wasting of arms and legs. SKIN: Cool and pale. He has significant onychomycosis. NEUROLOGIC: Witnessed seizure the patient came around, his speech is very faint and weak. He is completely bedridden. The Gibbs catheter is in place. LABORATORY AND DIAGNOSTIC STUDIES: Chest x-ray on admission showed COPD changes, no infiltrates or decompensation. His sodium on admission of 128 mEq per liter, potassium 1.8 mEq, creatinine is 1.2 mg/dL. Arterial blood gas showed a pH of 7.54, pCO2 of 27, pO2 of 135 mmHg. Hemoglobin is 11.1 g in a hemoconcentrated state, white count 6600, platelets are 75,000. ASSESSMENT: 1. A 65-year-old gentleman, chronic alcoholic with significant neglect. 2. Profound dehydration. 3. Hypokalemia due to alcoholism. 4. Hyponatremia. 5. Chronic obstructive pulmonary disease. 6. Significant protein-calorie malnutrition. 7. Alcohol withdrawal seizures witnessed. PLAN: 1. Admit to the inpatient unit. 2. IV hydration. 3. Diet as tolerated. 4. Empiric Keppra while in the hospital. 5. Serial chemistries. 6. Saline replacement. 7. Potassium and magnesium replacement. 8. His prognosis is quite guarded at this time, there is no guardian. He has not been responsive to any type of social media director needs in the past. JUVENAL FERRELL MD DR: YANDEL/shavonne JOB#: [id number] / [id number]
--- NOTE | 2020-09-17 10:43 | NUR ---
ADMIT NOTE-PT ARRIVES VIA EMS AT 0720. HE IS NOT UTILIZING OXYGEN, BUT HAS A PORRAS CATHETER THAT WAS PLACED IN ED. PT IS TAKEN STRAIGHT TO THE SHOWER, HE ARRIVED TO ED COVERED IN FECES. REDNESS IS PRESENT TO HIS BUTTOCKS AND GROIN, BUT NO AREAS ARE OPEN AT THIS TIME. THERE ARE PIV'S IN (B)UE. PT IS A&O X2.
[2020-09-17 11:09] VITALS: BP 88/65
[2020-09-17] MEDS: IPRATROPIUM/ALBUTEROL 20/100mcg/INH INHALER. INH SCH ×3 (12:00→21:07)
--- NOTE | 2020-09-17 14:50 | NUR ---
PT UNCLE LISSY [facility] CALLED TODAY. REPORTS THAT HE HAS DPOA FOR PT. PHONE NUMBER FOR CONTACT IS [phone].
[2020-09-17 15:25] VITALS: BP 74/52
[2020-09-17 19:22] VITALS: BP 89/53
[2020-09-17 22:52] VITALS: BP 95/67
[2020-09-18] VITALS (7 sets, daily range): BP systolic 68–109; BP diastolic 46–74
--- NOTE | 2020-09-18 05:45 | NUR ---
Pt awake in bed at change of shift, watching TV. Pt ate HS snack independently. Pt had small soft incont BM during night. Calmoseptine applied to buttocks and groin, redness noted. Pt slept well most of night.
[2020-09-18 06:29] LABS: BASO % 0 % (0-3); EOS # 0.1 x10^3/uL (0.0-0.7); EOS % 2 % (0-3); HEMATOCRIT 22.4 % (39.0-53.0); HEMOGLOBIN 7.8 g/dL (13.0-17.5); LYMPH # 1.8 x10^3/uL (1.0-4.8); LYMPH % 27 % (24-48); MEAN CORPUSCULAR HEMOGLOBIN 36 pg (25-35); MEAN CORPUSCULAR HGB CONC 35 g/dL (31-37); MEAN CORPUSCULAR VOLUME 104 fL (79-100); MONO # 0.3 x10^3/uL (0.0-1.1); MONO % 4 % (0-9); NEUT # 4.5 x10^3uL (1.8-7.7); NEUT % 67 % (31-73); PLATELET COUNT 47 x10^3/uL (140-400); RED BLOOD COUNT 2.16 x10^6/uL (4.30-5.70); RED CELL DISTRIBUTION WIDTH 19.4 % (11.5-14.5); WHITE BLOOD COUNT 6.6 x10^3/uL (4.0-11.0)
[2020-09-18 06:37] LABS: CALCIUM 7.7 mg/dL (8.5-10.1); CREATININE 0.7 mg/dL (0.7-1.3); GFR 113.5
[2020-09-18 06:39] LABS: POTASSIUM 2.2 mmol/L (3.5-5.1)
[2020-09-18] MEDS ORDERED: MAGNESIUM SULFATE 1GM 100 ML IV ONE (07:30)
[2020-09-18 07:56] LABS: PLT ESTIMATE DECREASED (ADEQUATE); TARGET CELLS PRESENT
[2020-09-18] MEDS: IPRATROPIUM/ALBUTEROL 20/100mcg/INH INHALER. INH SCH ×4 (08:42→20:00)
[2020-09-18] MEDS: POTASSIUM CHLORIDE 20 MEQ TABLET.ER. PO SCH ×2 (08:44→17:05)
[2020-09-18] MEDS: IV NORMAL SALINE 1,000ML 1,000 ML IV SCH (11:14)
--- NOTE | 2020-09-18 21:13 | PN ---
DATE: 09/18/2020 ATTENDING PHYSICIAN: Dr. Ferrell. SUBJECTIVE: More alert today. He is wanting juices. He denied any significant discomfort. OBJECTIVE FINDINGS: VITAL SIGNS: Blood pressure this morning is 109/74, pulse 81 and regular, temperature 97.6 degrees Fahrenheit, oxygen saturation 99% on room air. HEENT: Head is without trauma. Pupils are reactive. Orbits are still sunken. Oropharynx, poor dental repair. NECK: Supple. No bruits or stridor. LUNGS: Shallow respirations. CARDIOVASCULAR: Showed distant heart tones. ABDOMEN: Soft, no guarding. EXTREMITIES: Showed significant muscle wasting and cachexia. SKIN: Warm and dry. NEUROLOGIC: Fairly alert. He is bedridden. He has no focal neurologic deficits. PERTINENT LABORATORY DATA: Potassium is up to 2.2 mEq/L, sodium 133, creatinine 0.7 mg percent. Hemoglobin is down to 7.8 grams from hemodelusional state. White count of 6600. ASSESSMENT: 1. A 65-year-old gentleman, chronic alcoholic with significant neglect. 2. Profound dehydration. 3. Refractory hypokalemia due to hypomagnesemia and associated alcoholism. 4. Hyponatremia, corrected. 5. Chronic obstructive pulmonary disease. 6. Significant protein-calorie malnutrition. 7. Alcohol withdrawal seizures. PLAN: 1. Continue IV hydration. 2. Advance diet as tolerated. 3. Empiric Keppra while in the hospital. 4. Serial chemistry. 5. Potassium and magnesium replacement. 6. Guarded prognosis. He has no family or guardian at this time. JUVENAL FERRELL MD DR: YANDEL/shavonne JOB#: [id number] / [id number]
[2020-09-18] MEDS ORDERED: IV NORMAL SALINE 1,000ML 1,000 ML IV ONE (22:45)
[2020-09-19 00:17] VITALS: BP 73/57
[2020-09-19] MEDS: IV NORMAL SALINE 1,000ML 1,000 ML IV SCH (00:35)
--- NOTE | 2020-09-19 01:04 | NUR ---
Pts BP was 68/50 w/ a MAP of 56 at 2100. Pt appeared lethargic and complained of generalized pain. MD called. 1L bolus ordered and given. Pts BP is now 73/57 w/ a MAP of 62. Pt is now more alert. Pt is resting comfortably in bed w/ call light in reach. Will continue to monitor.
[2020-09-19 05:37] VITALS: BP 92/58
[2020-09-19 06:26] LABS: CALCIUM 7.2 mg/dL (8.5-10.1); CREATININE 0.7 mg/dL (0.7-1.3); GFR 113.5
[2020-09-19 06:30] LABS: POTASSIUM 2.8 mmol/L (3.5-5.1)
[2020-09-19] MEDS: IPRATROPIUM/ALBUTEROL 20/100mcg/INH INHALER. INH SCH ×4 (08:00→20:00)
[2020-09-19] MEDS: POTASSIUM CHLORIDE 20 MEQ TABLET.ER. PO SCH ×2 (08:03→17:39)
[2020-09-19] MEDS: POTASSIUM CHLORIDE 10MEQ 100 ML IV SCH ×4 (09:30→12:15)
[2020-09-19 11:04] VITALS: BP 76/66
[2020-09-19] MEDS ORDERED: IV NORMAL SALINE 500ML 500 ML IV ONE (14:45)
[2020-09-19] MEDS: POTASSIUM CL 40MEQ IN 0.9%NACL 1,000 ML IV SCH (15:05)
--- NOTE | 2020-09-19 19:17 | PN ---
DATE: 09/19/2020 SUBJECTIVE: The patient is resting, slightly propped up in bed, in no apparent respiratory distress. On questioning him, he stated that he is having aches and pains all over. He stated that his neighbor comes and helps him maintain himself. He is unable to walk. He has been crawling to get to the bathroom and in fact his neighbor found him on his couch lying in his stool. He was unable to stand or sit up because of weakness. He was found to be extremely hypokalemic with a potassium of 1.8, has also lactic acidosis. PHYSICAL EXAMINATION: GENERAL: When I examined him this afternoon, he was pale, cachectic, but no jaundice, cyanosis or thyromegaly. No jugular venous distention. No lower limb edema. VITAL SIGNS: His heart rate was 82, blood pressure was 76/66, temperature was 98.7, respiratory rate was 16, and oxygen saturation was 96% on room air. HEAD, EYES, EARS, NOSE AND THROAT: Normocephalic, atraumatic. NECK: Supple. HEART: Showed normal first and second heart sounds. No gallop, rub or murmur. CHEST: Clear to auscultation. No crepitation or rhonchi. ABDOMEN: Scaphoid, soft, nontender. NEUROLOGIC: He was awake, alert, responding appropriately. All cranial nerves are intact. He moves upper extremities __ lower extremities, extreme cachexia, muscle weakness. His body mass index only 14.5 kilograms square meter. His intake over the last 24 hours was 2461, output was 1500. LABORATORY DATA: As of this morning, his white cell count was 6600, hemoglobin 7.8, hematocrit 22, MCV 104 and platelet count of 47,000. His chemistry this morning showed a serum sodium 136, potassium 2.8, chloride 104, bicarbonate 25, anion gap of 7, BUN 13, creatinine 0.7. Estimated GFR was 113 mL per minute. His glucose was 92, calcium was 7.2. His prothrombin time, INR and aPTT are normal. D-dimer slightly elevated. Urinalysis essentially showed that he has more than 40 wbc's and large amount of leukocyte esterase. His urine toxic screen was positive for benzodiazepine and his coronavirus was not detectable. His influenza A and B were negative. His urine culture has grown more than 100,000 colony forming units per mL of Gram-positive cocci identified as Staphylococcus epidermidis. ASSESSMENT: This is a 65-year-old gentleman with severe cachexia, profound weakness, dehydration, severe hypokalemia, hyponatremia was corrected, chronic obstructive pulmonary disease and severe protein-calorie malnutrition. PLAN: To continue with IV fluid, continue with potassium supplement and I probably start him on IV antibiotic also for his Staphylococcus epidermidis and decide on further management accordingly. FREDERIC HAMILTON MD DR: SUNDEEP/shavonne JOB#: [id number] / [id number]
[2020-09-19 19:29] LABS: CALCIUM 7.2 mg/dL (8.5-10.1); CREATININE 0.6 mg/dL (0.7-1.3); GFR 135.6; MAGNESIUM 1.1 mg/dL (1.8-2.4); POTASSIUM 4.2 mmol/L (3.5-5.1)
[2020-09-19 20:11] VITALS: BP 66/48
[2020-09-19 22:21] VITALS: BP 62/49
[2020-09-20] MEDS: POTASSIUM CL 40MEQ IN 0.9%NACL 1,000 ML IV SCH (01:25)
[2020-09-20 05:53] VITALS: BP 75/55
[2020-09-20 06:28] LABS: HEMATOCRIT 22.9 % (39.0-53.0); HEMOGLOBIN 7.7 g/dL (13.0-17.5); RED BLOOD COUNT 2.17 x10^6/uL (4.30-5.70); RED CELL DISTRIBUTION WIDTH 19.4 % (11.5-14.5); WHITE BLOOD COUNT 7.2 x10^3/uL (4.0-11.0)
[2020-09-20 06:44] LABS: ALBUMIN 1.7 g/dL (3.4-5.0); ALBUMIN/GLOBULIN RATIO 0.7 (1.0-1.7); CALCIUM 7.2 mg/dL (8.5-10.1); CREATININE 0.5 mg/dL (0.7-1.3); GFR 167.4; POTASSIUM 4.9 mmol/L (3.5-5.1); TOTAL BILIRUBIN 0.1 mg/dL (0.2-1.0); TOTAL PROTEIN 4.3 g/dL (6.4-8.2)
[2020-09-20] MEDS: POTASSIUM CHLORIDE 20 MEQ TABLET.ER. PO SCH (08:00)
[2020-09-20] MEDS: IPRATROPIUM/ALBUTEROL 20/100mcg/INH INHALER. INH SCH ×2 (08:32→13:09)
[2020-09-20 10:15] VITALS: BP 92/68
[2020-09-20] MEDS ORDERED: VANCOMYCIN PER PHARMACY MC PRN (11:15)
[2020-09-20] MEDS ORDERED: VANCOMYCIN 1.25 GM in IV NORMAL SALINE 250ML 250 ML IV ONE (12:00)
[2020-09-20] MEDS ORDERED: IV NORMAL SALINE 1,000ML 1,000 ML IV SCH (13:00)
[2020-09-20] MEDS ORDERED: MAGNESIUM SULFATE 2GM 50 ML IV ONE (14:00)
--- NOTE | 2020-09-20 14:54 | DS ---
DATE OF DISCHARGE: 09/20/2020 HOSPITAL COURSE: The patient is a 65-year-old male patient who apparently lives alone and he apparently burned many bridges and there is no family or friends to take care of him. His neighbor found him in his couch lying in his own stool and urine, had been unable to get up to go to the bathroom and he just lies there and continues to abuse alcohol. Initial evaluation showed that he was extremely dehydrated and he was hyponatremic with profound hypokalemia and lactic acidosis. He had also seizures initially, so he was treated with Keppra. He was rehydrated and his serum sodium and potassium has normalized. He was more receptive to go to the alf facility and he was accepted at [facility]. As he remained hemodynamically stable and all his lab work has normalized, a decision was made to discharge him to continue the process of rehabilitation and perhaps long-term care. PHYSICAL EXAMINATION: GENERAL: When I saw him today, he was extremely cachectic, pale, not jaundiced or cyanosed. No lymphadenopathy, no thyromegaly. No jugular venous distention or limb edema. VITAL SIGNS: Her heart rate was 93, blood pressure was 92/68, temperature was 97.7, respiratory rate was 16, and oxygen saturation was 93%. HEAD, EYES, EARS, NOSE AND THROAT: Showed normocephalic, atraumatic. NECK: Supple. HEART: Showed normal first and second heart sounds. No gallop, rub or murmur. CHEST: Clear to auscultation. No crepitation or rhonchi. ABDOMEN: Slightly distended, soft, nontender. NEUROLOGIC: He is more awake, alert, responding appropriately. All cranial nerves intact. He moves extremities without difficulty, although he is mostly bedbound. He has marked muscle wasting and weakness. He is extremely cachectic with body mass index of only 14.5 kilograms per squared meter. His intake over the last 24 hours was 2100, output was 900. LABORATORY DATA: This morning showed a serum sodium 137, potassium 4.9, chloride 107, bicarbonate 25, anion gap of 5, BUN 10, creatinine 0.5, estimated GFR was 167 mL per minute. His glucose was 81, calcium was 7.2, magnesium was 1. Total bilirubin, AST, ALT, alkaline phosphatase were normal. Total protein was 4.3, albumin was 1.7. His white cell count was 7200, hemoglobin 7.7, hematocrit 22, MCV 106 and platelet count 72,000. His prothrombin time, INR and aPTT were normal. D-dimer is slightly elevated. Urinalysis showed a large amount of leukocyte esterase and more than 40 wbc's and his toxic screen was positive for benzodiazepine. His urine culture grew more than 100,000 colony forming units per mL of Gram-positive cocci identified as Staphylococcus epidermidis. His blood cultures are negative. FINAL DISCHARGE DIAGNOSES: Alcohol abuse, dehydration and profound weakness and severe hypokalemia, hyponatremia, hypomagnesemia, chronic obstructive pulmonary disease, severe protein-calorie malnutrition. FREDERIC HAMILTON MD DR: SUNDEEP/shavonne JOB#: [id number] / [id number]
[2020-09-20 15:31] VITALS: BP 71/54
--- NOTE | 2020-09-20 17:40 | NUR ---
pt discharged to [facility] via ems, report called to facility. pt alert and oriented, vitals stable. all belongings sent with ems.
[2020-09-20] MEDS ORDERED: levETIRAcetam 500 MG TABLET PO SCH (21:00)
[2020-09-21] MEDS ORDERED: VANCOMYCIN 750 MG in IV NORMAL SALINE 250ML 250 ML IV SCH (12:00)
== END 2020-09-20 17:40 | DRG 640 ==
LOC: ER 02:25 → 1 SOUTH 05:56
PROVIDERS: ADMIT Hospitalist; ATTEND Internal Medicine
DX: E86.0 Dehydration (principal); E43 Unspecified severe protein-calorie malnutrition; F10.239 Alcohol dependence with withdrawal, unspecified; N39.0 Urinary tract infection, site not specified; R64 Cachexia; G40.509 Epileptic seizures related to external causes, not intractable, without status epilepticus; E87.1 Hypo-osmolality and hyponatremia; E87.6 Hypokalemia; D64.9 Anemia, unspecified; D69.6 Thrombocytopenia, unspecified; E11.9 Type 2 diabetes mellitus without complications; E83.42 Hypomagnesemia; G62.9 Polyneuropathy, unspecified; I48.91 Unspecified atrial fibrillation; J44.9 Chronic obstructive pulmonary disease, unspecified; Z87.891 Personal history of nicotine dependence; F32.9 Major depressive disorder, single episode, unspecified; K21.9 Gastro-esophageal reflux disease without esophagitis; M19.90 Unspecified osteoarthritis, unspecified site; Z20.822 Contact with and (suspected) exposure to COVID-19; Z88.8 Allergy status to other drugs, medicaments and biological substances
CPT/HCPCS: 36415; 36600; 51702; 71045; 80048; 80053; 80076; 80307; 81001; 82550; 82803; 83605; 83690; 83735; 83880; 84443; 84484; 85025; 85027; 85379; 85610; 85730; 86140; 87040; 87077; 87086; 87804; 93005; 96365; 96366; 96368; 99292; G0480; J0696; J1953; J3370; J3475; J3480; J7040; J7050; J7120; U0003; 97110; 97530; 99291-25; J7030

== ENCOUNTER 2020-10-03 09:16 | Emergency (ER) | payer MEDICARE, MEDICAID ==
[~2020-10-03] VITALS: Ht 180.3 cm; Wt 47.3 kg
[2020-10-03 09:18] VITALS: BP 85/59
--- NOTE | 2020-10-03 09:25 | PHYS DOC ---
Past History Past Medical History: Alcoholism, Anemia, Arthritis, COPD, Depression, GERD, Other Past Surgical History: No Surgical History Smoking: Cigarettes Alcohol Use: Heavy General Adult EDM: Chief Complaint: MECHANICAL FALL HPI: HPI: History gained from patient and EMS. Patient is a 65-year-old male with history of alcohol abuse who presents with chief complaint of nonsyncopal fall. Patient currently resides at [facility] and rehab. He was hospitalized to our facility proximally 2 weeks ago for alcohol withdrawal and dehydration. He has since been discharged to his rehab facility. EMS were called to his facility after a nonsyncopal fall that occurred just prior to arrival. Patient states he was walking from his bed to the bathroom when he tripped and fell. He did strike his head. Denies LOC. Does not take blood thinners. Does note some posterior head pain. Denies any new back or neck pain. Denies shortness of breath or chest pain. Has not taken medication prior to arrival. Unsure of last tetanus vaccine. Denies seizure-like activity. Review of Systems: Review of Systems: Constitutional: Denies fever or chills Eyes: Denies change in visual acuity HENT: Denies nasal congestion or sore throat Respiratory: Denies cough or shortness of breath Cardiovascular: Denies chest pain or edema GI: Denies abdominal pain, nausea, vomiting, bloody stools or diarrhea : Denies dysuria Musculoskeletal: Positive for fall Integument: Denies rash Neurologic: Denies headache, focal weakness or sensory changes Endocrine: Denies polyuria or polydipsia Lymphatic: Denies swollen glands Psychiatric: Denies depression or anxiety Allergies: Allergies: Allergies Coded Allergies Type Severity Reaction Last Updated Verified Penicillins Allergy Unknown 07/04/20 Yes codeine Allergy Unknown 07/04/20 Yes Physical Exam: PE: Physical Exam Trauma: Primary Survey: Airway: Intact. Speaks in normal voice and phonation. Breathing: Breath sounds are clear and equal bilaterally. Circulation: Regular rhythm, 2+ and symmetric radial, DP and PT pulses. Disability: GCS on arrival was 15. Pupils 3 mm, ERRL Exposure: Complete exposure obtained and described in detail below. Secondary Survey: General: Awake, alert, appropriate, and in no acute distress HENT: 2 cm laceration to the left posterior occiput. TMs clear bilaterally, no hemotympanum. No periorbital tenderness or deformity. No obvious craniofacial trauma. Midface is stable. No apparent dental or tongue/oropharyngeal injury. No septal hematoma. Neck: C-spine: no midline tenderness. Without step-off, deformity, abrasion, ecchymosis, or other signs of trauma. Paraspinal musculature with no tenderness and/or hypertonicity. Eyes: Pupils 3 mm ERRL, EOMI grossly, no evidence of ocular trauma, conjunctivae normal Respiratory: CTAB without wheezing, rhonchi, or rales. No distress. Chest wall with no tenderness to palpation. No crepitus, ecchymosis, or flail segment pres ent. Cardiovascular: Regular rhythm without murmurs noted. 2+ and symmetric radial, DP and PT pulses. GI: Soft, non-tender, non-distended Musculoskeletal: T-spine: no midline tenderness. Without step-off, deformity, abrasion, ecchymosis, or other signs of trauma. Paraspinal musculature with no tenderness and/or hypertonicity. L-spine: no midline tenderness. Without step-off, deformity, abrasion, ecchymosis, or other signs of trauma. Paraspinal musculature with no tenderness and/or hypertonicity. RUE: Active ROM, no obvious deformity, no gross weakness or sensory deficits, warm & well-perfused LUE: Active ROM, no obvious deformity, no gross weakness or sensory deficits, warm & well-perfused RLE: Active ROM, no obvious deformity, no gross weakness or sensory deficits, warm & well-perfused LLE: Active ROM, no obvious deformity, no gross weakness or sensory deficits, warm & well-perfused Integument: Without abrasions, contusions, or lacerations. Neurologic: GCS on arrival as noted above. No obvious focal motor or sensory deficits on examination. Gait not assessed due to acuity of trauma assessment. Current Patient Data: Vital Signs: Vital Signs Date Time Temp Pulse Resp B/P (MAP) Pulse Ox O2 Delivery O2 Flow Rate FiO2 10/03/20 09:18 98.0 99 16 85/59 (68) 99 Room Air EKG: EKG: [] Radiology/Procedures: Radiology/Procedures: [address] [address] IMAGING REPORT Signed PATIENT: MARIELOS WHITE LACCOUNT: [id number] : 1955 LOCATION: ER AGE: 65 SEX: M EXAM STATUS: REG ER ORD. PHYSICIAN: SHAILA CRISOSTOMO DO REASON: fall PROCEDURE: CT HEAD AND CERVICAL SPINE WO CT brain without contrast, CT C-spine without contrast. HISTORY: Fall CT brain CT scan of brain was done without contrast. Comparison is made with a study from July 04. There is diffuse atrophy. There is no intracranial hemorrhage or subdural hematoma. There is no mass effect or shift of the midline. Ventricles are within normal limits in size for the degree of atrophy. An acute CVA is not identified. Sinuses are clear. A skull fracture is not identified. IMPRESSION: 1. Atrophy. 2. No intracranial hemorrhage or acute finding. End impression CT cervical spine Axial CT images were obtained through the cervical spine. Sagittal and coronal reconstructed images were reviewed. There is degenerative change in the cervical spine. There are emphysematous changes in the upper lobes of the lungs. There is mild to moderate carotid artery calcification at the carotid bifurcations on each side. There is degenerative disc disease at all levels in the cervical spine except for C2-3. There is foraminal stenosis from uncovertebral spurring and facet arthritis at several levels bilaterally. An acute C-spine fracture is not identified. IMPRESSION: 1. Extensive degenerative changes in the cervical spine. 2. No acute C-spine fracture. RS Compliance Statement: One or more of the following individualized dose reduction techniques were utilized for this examination: 1. Automated exposure control 2. Adjustment of the mA and/or kV according to patient size 3. Use of iterative reconstruction technique Electronically signed by: Giovanni Poe MD (10/03/2020 10:02 AM) [id number] DICTATED AND SIGNED BY: GIOVANNI POE MD DATE: 10/03/20 0957 CC: ELSA BONE DO; SHAILA CRISOSTOMO DO ~MTH0 [address] [address] IMAGING REPORT Signed PATIENT: MARIELOS WHITE LACCOUNT: [id number] : 1955 LOCATION: ER AGE: 65 SEX: M EXAM STATUS: REG ER ORD. PHYSICIAN: SHAILA CRISOSTOMO DO REASON: fall PROCEDURE: PORTABLE CHEST 1V AP chest. HISTORY: Fall AP view was taken of the chest. There are changes of chronic obstructive pulmonary disease. There is linear scarring or atelectasis on the right. There is a left pleural effusion which has developed since the prior study from September 17. There appear to be skin folds. There are old right rib fractures. Heart is upper normal in size. No other infiltrates are noted. IMPRESSION: 1. Left pleural effusion. 2. Linear scarring or atelectasis on the right. Electronically signed by: Giovanni Poe MD (10/03/2020 9:55 AM) [email or web address] DICTATED AND SIGNED BY: GIOVANNI POE MD DATE: 10/03/20952 CC: ELSA BONE DO; SHAILA CRISOSTOMO DO ~MTH0 [address] [place] [address] IMAGING REPORT Signed PATIENT: MARIELOS WHITE LACCOUNT: [id number] : 1955 LOCATION: ER AGE: 65 SEX: M EXAM STATUS: REG ER ORD. PHYSICIAN: SHAILA CRISOSTOMO DO REASON: fall PROCEDURE: PELVIS Pelvis one view. HISTORY: Fall Single view was taken of the pelvis. There is no acute pelvic fracture. There is severe arthritis in both hips. There are erosive changes at the femoral head on the right. There is degenerative disc disease in the lower lumbar spine. IMPRESSION: 1. Severe arthritis in both hips. 2. Degenerative disc disease in lower lumbar spine. 3. No acute pelvic fracture. Electronically signed by: Giovanni Poe MD (10/03/2020 9:57 AM) [id number] DICTATED AND SIGNED BY: GIOVANNI POE MD DATE: 10/03/20954 CC: ELSA BONE DO; SHAILA CRISOSTOMO DO ~MTH0 0 [] Laceration Repair: Obtained verbal consent from patient. Time out done prior to procedure. No sedation was required. 1 Laceration(s) to left posterior occiput. Sterile drape fashioned, following sterile procedure. Procedure: Laceration Repair Length: 2 cm Description: Linear, clean wound edges Mechanism: Fall Shape: Linear Complex: n/a The wound area was prepped and draped in a sterile fashion. The wound was irrigated with copious amounts of normal saline The wound was explored with the following results no subgaleal violation. The wound was repaired with 2 jairo were used. The wound was dressed cleanly. The patient tolerated the procedure well. Heart Score: Risk Factors: Risk Factors: DM, Current or recent (<one month) smoker, HTN, HLP, family history of CAD, obesity. Risk Scores: Score 0 - 3: 2.5% MACE over next 6 weeks - Discharge Home Score 4 - 6: 20.3% MACE over next 6 weeks - Admit for Clinical Observation Score 7 - 10: 72.7% MACE over next 6 weeks - Early Invasive Strategies Course & Med Decision Making: Course & Med Decision Making Pertinent Labs and Imaging studies reviewed. (See chart for details) [] Patient is a 65-year-old male who arrives from [facility] for nonsyncopal fall just prior to arrival. Initial vital signs normal. GCS 15 on arrival. Patient's 2 cm laceration to his posterior occiput was repaired with 2 jairo at bedside. Tetanus updated. CT imaging of the head neck reveals no acute traumatic abnormality. Plain film imaging of the chest and pelvis also negative for acute traumatic abnormality. Repeat ass essment patient remains a GCS of 15. Vital signs been stable. I do feel he is appropriate for discharge back to his extended care facility. Return precautions were discussed and understood. Patient expressed understanding. Instructed to have his jairo removed in the next 5 to 7 days. Stable for discharge home. Dragon Disclaimer: Veronika Disclaimer: This electronic medical record was generated, in whole or in part, using a voice recognition dictation system. Departure Departure: Impression: Primary Impression: Fall Qualified Codes: W19.XXXA - Unspecified fall, initial encounter Additional Impression: Laceration of head Qualified Codes: S01.01XA - Laceration without foreign body of scalp, initial encounter Disposition: 03 DC/TRF TO SNF Condition: STABLE Referrals: PCP,ARISTIDES (PCP) FREDERIC HAMILTON MD Patient Instructions: Staple Care and Removal Additional Instructions: Please follow-up with your primary care physician in the next 2 to 3 days. Scripts No Active Prescriptions or Reported Meds SHAILA CRISOSTOMO DO Oct 03, 2020 09:25
--- NOTE | 2020-10-03 09:57 | RAD ---
AP chest. HISTORY: Fall AP view was taken of the chest. There are changes of chronic obstructive pulmonary disease. There is linear scarring or atelectasis on the right. There is a left pleural effusion which has developed sin ce the prior study from September 17. There appear to be skin folds. There are old right rib fractures. Heart is upper normal in size. No other infiltrates are noted. IMPRESSION: 1. Left pleural effusion. 2. Linear scarring or atelectasis on the right. Electronically signed by: Giovanni Poe MD (10/03/2020 9:55 AM) [email or web address]
--- NOTE | 2020-10-03 09:59 | RAD ---
Pelvis one view. HISTORY: Fall Single view was taken of the pelvis. There is no acute pelvic fracture. There is severe arthritis in both hips. There are erosive changes at the femoral head on the right. There is degenerative disc dis ease in the lower lumbar spine. IMPRESSION: 1. Severe arthritis in both hips. 2. Degenerative disc disease in lower lumbar spine. 3. No acute pelvic fracture. Electronically signed by: Giovanni Poe MD (10/03/2020 9:57 AM) [email or web address]
--- NOTE | 2020-10-03 10:05 | RAD ---
CT brain without contrast, CT C-spine without contrast. HISTORY: Fall CT brain CT scan of brain was done without contrast. Comparison is made with a study from July 04. There i s diffuse atrophy. There is no intracranial hemorrhage or subdural hematoma. There is no mass effect or shift of the midline. Ventricles are within normal limits in size for the degree of atrophy. An ac [place] CVA is not identified. Sinuses are clear. A skull fracture is not identified. IMPRESSION: 1. Atrophy. 2. No intracranial hemorrhage or acute finding. End impression CT cervical spine Axial CT images were obtained through the cervical spine. Sagittal and coronal reconstructed images w ere reviewed. There is degenerative change in the cervical spine. There are emphysematous changes in the upper lobes of the lungs. There is mild to moderate carotid artery calcification at the carotid b ifurcations on each side. There is degenerative disc disease at all levels in the cervical spine exce pt for C2-3. There is foraminal stenosis from uncovertebral spurring and facet arthritis at several l evels bilaterally. An acute C-spine fracture is not identified. IMPRESSION: 1. Extensive degenerative changes in the cervical spine. 2. No acute C-spine fracture. PQRS Compliance Statement: One or more of the following individualized dose reduction techniques were utilized for this examinat ion: 1. Automated exposure control 2. Adjustment of the mA and/or kV according to patient size 3. Use of iterative reconstruction technique Electronically signed by: Giovanni Poe MD (10/03/2020 10:02 AM) [email or web address]
[2020-10-03] MEDS ORDERED: DIPH,PERTUSS(ACELL),TET VAC/PF 0.5 ML SYRINGE. VAX IM ONE (10:15)
== END 2020-10-03 13:10 ==
LOC: ER 09:16
DX: S01.01XA Laceration without foreign body of scalp, initial encounter (principal); F10.20 Alcohol dependence, uncomplicated; Y90.9 Presence of alcohol in blood, level not specified; M19.90 Unspecified osteoarthritis, unspecified site; J44.9 Chronic obstructive pulmonary disease, unspecified; K21.9 Gastro-esophageal reflux disease without esophagitis; F17.210 Nicotine dependence, cigarettes, uncomplicated; Z88.0 Allergy status to penicillin; Z88.5 Allergy status to narcotic agent; W01.0XXA Fall on same level from slipping, tripping and stumbling without subsequent striking against object, initial encounter; Y93.01 Activity, walking, marching and hiking; Y92.89 Other specified places as the place of occurrence of the external cause; Y99.8 Other external cause status
CPT/HCPCS: 12001; 70450; 71045; 72125; 72170; 99285-25

== ENCOUNTER 2020-10-03 16:21 | Emergency (ER) | payer MEDICARE, MEDICAID ==
[~2020-10-03] VITALS: Ht 180.3 cm; Wt 47.3 kg
--- NOTE | 2020-10-03 16:40 | PHYS DOC ---
Past History Past Medical History: Alcoholism, Anemia, Arthritis, COPD, Depression, GERD, Other (SHAILA CRISOSTOMO DO) Past Surgical History: No Surgical History (SHAILA CRISOSTOMO DO) Smoking: Cigarettes Alcohol Use: Heavy (SHAILA CRISOSTOMO DO) General Adult EDM: Chief Complaint: MECHANICAL FALL HPI: HPI: History obtained from patient and EMS. Patient is a 65-year-old male with multiple comorbidities who presents with chief complaint of concern for generalized weakness and frequent falls. Patient arrives from his extended care facility for concern of inability to stand on his own. Patient was seen in our facility earlier today due to a nonsyncopal fall. Head laceration repaired with jairo. EMS states that the patient denies any falls. Patient states that he was crawling on the floor of his room to look out the window. He denies falling. Nursing staff states concerned that he did actually fall per EMS. But nobody witnessed this. EMS states that nursing care staff are concerned with his strength and ability to stand on his own. Patient has no complaints. (SHAILA CRISOSTOMO DO) Review of Systems: Review of Systems: Constitutional: Denies fever or chills Eyes: Denies change in visual acuity HENT: Denies nasal congestion or sore throat Respiratory: Denies cough or shortness of breath Cardiovascular: Denies chest pain or edema GI: Denies abdominal pain, nausea, vomiting, bloody stools or diarrhea : Denies dysuria Musculoskeletal: Falls Integument: Denies rash Neurologic: Denies headache, focal weakness or sensory changes Endocrine: Denies polyuria or polydipsia Lymphatic: Denies swollen glands Psychiatric: Denies depression or anxiety (SHAILA CRISOSTOMO DO) Allergies: Allergies: Allergies Coded Allergies Type Severity Reaction Last Updated Verified Penicillins Allergy Unknown 07/04/20 Yes codeine Allergy Unknown 07/04/20 Yes (SHAILA CRISOSTOMO DO) Physical Exam: PE: Constitutional: Well developed, well nourished, no acute distress, non-toxic appearance. [] HENT: Normocephalic, 2 cm laceration to left posterior occiput was in place., bilateral external ears normal, oropharynx moist, no oral exudates, nose normal. [] Eyes: PERRLA, EOMI, conjunctiva normal, no discharge. [] Neck: Normal range of motion, no tenderness, supple, no stridor. [] Cardiovascular:Heart rate regular rhythm, no murmur [] Lungs & Thorax: Bilateral breath sounds clear to auscultation [] Abdomen: B soft, no tenderness, no masses, no pulsatile masses. [] Skin: Warm, dry, no erythema, no rash. [] Back: No tenderness, no CVA tenderness. [] Extremities: No tenderness, no cyanosis, no clubbing, ROM intact, no edema. [] Neurologic: Alert and oriented X 3, normal motor function, normal sensory function, no focal deficits noted. [] Psychologic: Affect normal, judgement normal, mood normal. [] (SHAILA CRISOSTOMO DO) Current Patient Data: Labs: Laboratory Tests Test 10/03/20 17:10 White Blood Count 7.9 x10^3/uL Red Blood Count 2.30 x10^6/uL Hemoglobin 7.9 g/dL Hematocrit 24.9 % Mean Corpuscular Volume 108 fL Mean Corpuscular Hemoglobin 34 pg Mean Corpuscular Hemoglobin Concent 32 g/dL Red Cell Distribution Width 18.2 % Platelet Count 342 x10^3/uL Neutrophils (%) (Auto) 63 % Lymphocytes (%) (Auto) 23 % Monocytes (%) (Auto) 12 % Eosinophils (%) (Auto) 2 % Basophils (%) (Auto) 1 % Neutrophils # (Auto) 4.9 x10^3uL Lymphocytes # (Auto) 1.8 x10^3/uL Monocytes # (Auto) 0.9 x10^3/uL Eosinophils # (Auto) 0.1 x10^3/uL Basophils # (Auto) 0.1 x10^3/uL Current Medications Medications (Trade) Dose Ordered Sig/Marilyn Route PRN Reason Start Time Stop Time Status Last Admin Dose Admin Sodium Chloride 1,000 ml @ 1,000 mls/hr 1X ONCE IV 10/03/20 17:00 10/03/20 17:59 10/03/20 17:15 Vital Signs: Vital Signs Date Time Temp Pulse Resp B/P (MAP) Pulse Ox O2 Delivery O2 Flow Rate FiO2 10/03/20 16:45 98.1 93 20 84/57 (66) 96 (SHAILA CRISOSTOMO DO) EKG: EKG: [] EKG consistent with normal sinus rhythm. Ventricular rate of 87 bpm. Right axis deviation noted. Intervals normal. No acute ischemic changes noted. Similar to EKG obtained earlier today. (SHAILA CRISOSTOMO DO) Radiology/Procedures: Radiology/Procedures: [] (SHAILA CRISOSTOMO DO) Heart Score: Risk Factors: Risk Factors: DM, Current or recent (<one month) smoker, HTN, HLP, family history of CAD, obesity. Risk Scores: Score 0 - 3: 2.5% MACE over next 6 weeks - Discharge Home Score 4 - 6: 20.3% MACE over next 6 weeks - Admit for Clinical Observation Score 7 - 10: 72.7% MACE over next 6 weeks - Early Invasive Strategies (SHAILA CRISOSTOMO DO) Course & Med Decision Making: Course & Med Decision Making Pertinent Labs and Imaging studies reviewed. (See chart for details) [] Patient is a 65-year-old male who presents with chief concern for frequent falls and generalized weakness from extended care facility. Patient was seen in our facility earlier today. Advanced imaging was negative for traumatic abnormality. [place] were placed at that time. He returns this afternoon after being found down in his room. Patient states however that he was crawling to get to his window. Staff is concerned for weakness and falls. Laboratory an alysis will be obtained. Patient CBC returned and show a baseline macrocytic anemia. Likely due to chronic alcohol use. Range of labs are currently pending. Patient will likely require hospitalization for frequent falls. I have signed out the patient's emergency department care to Dr. Rubalcava. We discussed the history, physical exam findings, completed and pending laboratory results and imaging studies. We have also discussed the current treatment plan and expected clinical course. Please refer to chart for the patient's remaining emergency department course, final disposition, and clinical impression(s). (SHAILA CRISOSTOMO DO) Course & Med Decision Making Took over patient's care from day team provider. 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 Blood cultures obtained, Covid swab and started on Levaquin here in the ED. No anticoagulation started as hemoglobin is 7.9 and patient's blood pressures are soft. Discussed all findings with patient and recommended admission and transfer to [facility] for continued evaluation and treatment. Patient grateful, verbalized understanding and agreed with plan of transfer. (NICOLÁS RUBALCAVA MD) Dragon Disclaimer: Dragon Disclaimer: This electronic medical record was generated, in whole or in part, using a voice recognition dictation system. (SHAILA CRISOSTOMO DO) Departure Departure: Impression: Primary Impression: Frequent falls Additional Impressions: Scalp laceration Qualified Codes: S01.01XD - Laceration without foreign body of scalp, subsequent encounter Macrocytic anemia Disposition: 09 ADMITTED INPT THIS HOSP Condition: STABLE Referrals: ELSA BONE DO (PCP) Scripts No Active Prescriptions or Reported Meds SHAILA CRISOSTOMO DO Oct 03, 2020 16:40 NICOLÁS RUBALCAVA MD Oct 03, 2020 20:06
--- NOTE | 2020-10-03 16:49 | EKG ---
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
[2020-10-03] MEDS ORDERED: IV NORMAL SALINE 1,000ML 1,000 ML IV ONE (17:00)
[2020-10-03 17:39] LABS: BASO # 0.1 x10^3/uL (0.0-0.2); BASO % 1 % (0-3); EOS # 0.1 x10^3/uL (0.0-0.7); EOS % 2 % (0-3); HEMATOCRIT 24.9 % (39.0-53.0); HEMOGLOBIN 7.9 g/dL (13.0-17.5); LYMPH # 1.8 x10^3/uL (1.0-4.8); LYMPH % 23 % (24-48); MEAN CORPUSCULAR HEMOGLOBIN 34 pg (25-35); MEAN CORPUSCULAR HGB CONC 32 g/dL (31-37); MEAN CORPUSCULAR VOLUME 108 fL (79-100); MONO # 0.9 x10^3/uL (0.0-1.1); MONO % 12 % (0-9); NEUT # 4.9 x10^3uL (1.8-7.7); NEUT % 63 % (31-73); PLATELET COUNT 342 x10^3/uL (140-400); RED CELL DISTRIBUTION WIDTH 18.2 % (11.5-14.5); WHITE BLOOD COUNT 7.9 x10^3/uL (4.0-11.0)
[2020-10-03 17:51] LABS: BILIRUBIN,URINE NEG (NEG); CLARITY,URINE CLEAR; COLOR,URINE YELLOW; GLUCOSE,URINE NEG (NEG)
[2020-10-03 17:52] LABS: BACTERIA,URINE 0 /HPF (0-FEW); NITRITE,URINE NEG (NEG); SQUAMOUS EPITHELIAL CELL,UR FEW /LPF; UROBILINOGEN,URINE 0.2 mg/dL (0.2 mg/dL)
[2020-10-03 19:14] LABS: CALCIUM 7.5 mg/dL (8.5-10.1); CREATININE 0.5 mg/dL (0.7-1.3); GFR 167.4; POTASSIUM 3.5 mmol/L (3.5-5.1)
[2020-10-03] MEDS ORDERED: RINGERS LACTATED IV ONE (19:15)
[2020-10-03] MEDS ORDERED: IOHEXOL 300 MG/ML 75 ML VIAL. IV ONE (19:15)
[2020-10-03] MEDS ORDERED: CONTRAST GIVEN. MC PRN (19:15)
--- NOTE | 2020-10-03 19:44 | RAD ---
CT abdomen and pelvis with contrast: Reason for examination: Abdominal pain. Helical images were obtained through the abdomen and pelvis with intravenous administration of 74 cc Omnipaque 350. Reconstruction was performed in sagittal and coronal planes. Exposure: One or more of the following individualized dose reduction techniques were utilized for thi s examination: 1. Automated exposure control 2. Adjustment of the mA and/or kV according to patient size 3. Use of iterative reconstruction technique. There is hazy infiltrate and moderate pleural effusion at the left lung base. There is also some mild patchy infiltrate posteriorly at the right lung base. The heart size is normal with no pericardial e ffusion. There is a small hypodense lesion in the left lobe liver consistent with a probable cyst measuring 6. 6 mm in size. Gallbladder is contracted but no cholelithiasis is evident. No abnormality seen at the spleen, adrenal glands or pancreas. The abdominal aorta shows some arteriosclerotic vascular calcific ation and in the distal abdominal aorta, there is mild dilatation at 2.8 cm with mural thrombus. Ther e is calcification and mural thrombus in the left internal iliac artery which is dilated at 1.5 cm. T here is diverticulosis in the sigmoid colon and descending colon but no diverticulitis or colitis is evident. The appendix is not definitely identified but there are no secondary signs of appendicitis. The small intestinal tract shows no abnormal dilatation or wall thickening. There is no bowel obstruc tion evident. No abnormality seen at the stomach or duodenum. The kidneys show a small nonobstructing calculus at the lower pole of the left kidney but no hydronephrosis or obstructive uropathy is evide nt. No abnormality seen at the bladder. Prostate gland shows some minimal calcification. Seminal vesicles are symmetric. No free fluid or free air seen in the abdomen or pelvis. There are severe degenerativ e changes in the lumbar spine and at both hips, right greater than left. IMPRESSION: Hazy infiltrate and moderate pleural effusion at the left lung base. Mild patchy infiltrates posteriorly at the right lung base. 6.6 mm hypodense lesion in the liver consistent with a probable cyst. Contracted gallbladder but no cholelithiasis seen. 3 mm nonobstructing calculus in the lower pole of the left kidney. Diverticulosis in the descending and sigmoid colon without diverticulitis. 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 Dilated left internal iliac artery at 1.5 cm with mural thrombus. Severe degenerative changes in the lumbar spine and bilateral hips. Electronically signed by: Che Ventura MD (10/03/2020 7:42 PM) RAISSA
[2020-10-03 20:57] LABS: FECAL OB PT NEGATIVE (NEG)
[2020-10-03 21:52] VITALS: BP 95/67
== END 2020-10-03 21:56 | disposition short-term general hospital (02) ==
LOC: ER 16:21
DX: S01.01XD Laceration without foreign body of scalp, subsequent encounter (principal); D53.9 Nutritional anemia, unspecified; R29.6 Repeated falls; F10.20 Alcohol dependence, uncomplicated; M19.90 Unspecified osteoarthritis, unspecified site; J44.9 Chronic obstructive pulmonary disease, unspecified; K21.9 Gastro-esophageal reflux disease without esophagitis; F17.210 Nicotine dependence, cigarettes, uncomplicated; Z20.822 Contact with and (suspected) exposure to COVID-19; Z86.2 Personal history of diseases of the blood and blood-forming organs and certain disorders involving the immune mechanism; Z88.0 Allergy status to penicillin; Z88.5 Allergy status to narcotic agent; Y90.9 Presence of alcohol in blood, level not specified; W18.30XD Fall on same level, unspecified, subsequent encounter
CPT/HCPCS: 36415; 74177; 80048; 81001; 82274; 82550; 85025; 86850; 86900; 86901; 87040; 87077; 87086; 87186; 93005; 96361; 96365; 99285; C9803; J1956; J7030; J7120; Q9967; U0003

== ENCOUNTER → 2021-04-12 | Outpatient (CLI) | payer MEDICARE ==
--- NOTE | 2021-04-12 16:18 | RAD ---
XR HIP (WITH OR WITHOUT PELVIS) RIGHT 1 VIEW 04/12/2021 Reason: S/P RIGHT HIP ARTHROPLASTY Comparison: Pelvic radiograph 10/03/2020 Technique: Frontal and lateral views of the right hip Findings: There is been interval total right hip arthroplasty which is in anatomic alignment. There is distract ion of the right greater trochanter with sharp margins, possibly surgical in nature. No periprostheti c fracture or hardware failure. Again demonstrated are severe degenerative changes of the left hip. D egenerative disc disease is noted in the lower lumbar spine. Impression: 1. Interval total right hip arthroplasty with distraction of the right greater trochanter. 2. Similar severe degenerative change of the left hip. Electronically signed by: Jaspreet Collins (04/12/2021 4:15 PM) [id number]
== END ==
LOC: RAD 11:05
PROVIDERS: ATTEND Physician Assistant
DX: M16.12 Unilateral primary osteoarthritis, left hip (principal); M47.816 Spondylosis without myelopathy or radiculopathy, lumbar region; Z96.641 Presence of right artificial hip joint
CPT/HCPCS: 73501

== ENCOUNTER → 2021-05-10 | Outpatient (CLI) | payer MEDICARE ==
--- NOTE | 2021-05-10 15:41 | RAD ---
EXAM: Pelvis and right hip, 2 views. HISTORY: Arthroplasty. COMPARISON: 04/12/2021 FINDINGS: A frontal view of the pelvis and frog-leg view of the right hip are obtained. There is a ri ght hip arthroplasty in expected position. There is no evidence of arthroplasty loosening. There is a displaced fracture involving the greater trochanter, stable in appearance. There is severe left hip joint space narrowing with degenerative subchondral sclerosis, subchondral cyst formation and margina l acetabular and femoral head spurring. There is flattening of the left superior acetabulum and artic ular aspect of the left femoral head. There is decreased left femoral head-neck offset consistent wit h chronic hip impingement. There is sacralization of the left L5 transverse process, a normal variant . There is degenerative change at the lower lumbar levels. IMPRESSION: 1. Right hip arthroplasty unchanged in position. There is stable modestly segment of the right femora l greater trochanter. 2. Severe left hip osteoarthritis with associated mild flattening of the articular aspect of the acet abulum and femoral head and findings existing chronic hip impingement. Electronically signed by: Trisha Paulino MD (05/10/2021 3:38 PM) [id number]
== END ==
LOC: RAD 10:37
PROVIDERS: ATTEND Physician Assistant
DX: S72.111D Displaced fracture of greater trochanter of right femur, subsequent encounter for closed fracture with routine healing (principal); M16.12 Unilateral primary osteoarthritis, left hip; X58.XXXD Exposure to other specified factors, subsequent encounter; M91 Juvenile osteochondrosis of hip and pelvis; M76.892 Other specified enthesopathies of left lower limb, excluding foot; M47.816 Spondylosis without myelopathy or radiculopathy, lumbar region; M43.27 Fusion of spine, lumbosacral region; Z96.641 Presence of right artificial hip joint
CPT/HCPCS: 73501

== ENCOUNTER 2021-06-07 08:20 | Inpatient (IN) | payer MEDICARE ==
[~2021-06-07] VITALS: Ht 180.3 cm; Wt 81.0 kg
--- NOTE | 2021-06-07 08:25 | PHYS DOC ---
Past History Past Medical History: Alcoholism, Anemia, Arthritis, COPD, Depression, GERD, Other Past Surgical History: No Surgical History Smoking: Cigarettes Alcohol Use: Sober Adult General HPI HPI Patient is a 65-year-old male presenting via EMS from [facility] for dysphagia. Reports symptoms did not start until 48 hours ago. Has no known sick contacts or recent travel, states he has been eating well but it is painful when he swallows. Also admits increased sputum production and shortness of breath which is not typical for him. 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 Patient stated his complaints to snf staff this morning who on evaluation found him to be at 87% on room air prompting them to call EMS. On arrival, patient remained mildly hypoxic on room air but otherwise hemodynamically stable and so, supplemental oxygen was provided and patient was transported to our facility. On arrival, patient complains of pain with swallowing and generalized weakness. Admits he is fully vaccinated against COVID-19 with no obvious exposures. No recent fever, chills, vision changes, chest pain, ripping or tearing sensation in chest, abdominal pain, changes in bladder or bowel function, no motor or sensory or neuro changes Review of Systems Review of Systems Fourteen body systems of review of systems have been reviewed. See HPI for perti nent positives and negative responses, other suarez all other systems are negative, non-pertinent or non-contributory Allergies Allergies Allergies Coded Allergies Type Severity Reaction Last Updated Verified Penicillins Allergy Unknown 07/04/20 Yes codeine Allergy Unknown 07/04/20 Yes Physical Exam Physical Exam Constitutional: Well developed, well nourished, no acute distress, non-toxic appearance. HENT: Normocephalic, atraumatic, bilateral external ears normal, oropharynx moist with white exudate present on uvula and bilateral tonsils, nose normal. Eyes: PERRLA, EOMI, conjunctiva normal, no discharge. Neck: Normal range of motion, no tenderness, supple, no stridor. Cardiovascular: Heart rate tachycardic, sinus rhythm, no murmurs rubs or gallops Lungs & Thorax: Bilateral breath sounds clear to auscultation Abdomen: Bowel sounds normal, soft, no tenderness, no masses, no pulsatile masses. Nonsurgical abdomen, no peritoneal signs Skin: Warm, dry, no erythema, no rash. Back: No tenderness, no CVA tenderness. Extremities: No tenderness, no cyanosis, no clubbing, ROM intact, no edema. Neurologic: Alert and oriented X 3, grossly normal motor & sensory function, no focal deficits noted. Psychologic: Affect normal, judgement normal, mood normal. Current Patient Data Vital Signs Vital Signs Date Time Temp Pulse Resp B/P (MAP) Pulse Ox O2 Delivery O2 Flow Rate FiO2 06/07/21 08:20 99.1 54 22 101/85 (90) 96 4.0 Vital Signs Date Time Temp Pulse Resp B/P (MAP) Pulse Ox O2 Delivery O2 Flow Rate FiO2 06/07/21 08:20 99.1 54 22 101/85 (90) 96 4.0 Lab Results Laboratory Tests Test 06/07/21 08:35 06/07/21 08:40 06/07/21 08:55 SARS-CoV-2 Antigen (Rapid) Negative White Blood Count 18.2 x10^3/uL Red Blood Count 4.81 x10^6/uL Hemoglobin 14.4 g/dL Hematocrit 44.2 % Mean Corpuscular Volume 92 fL Mean Corpuscular Hemoglobin 30 pg Mean Corpuscular Hemoglobin Concent 33 g/dL Red Cell Distribution Width 15.7 % Platelet Count 304 x10^3/uL Neutrophils (%) (Auto) 82 % Lymphocytes (%) (Auto) 9 % Monocytes (%) (Auto) 8 % Eosinophils (%) (Auto) 0 % Basophils (%) (Auto) 1 % Neutrophils # (Auto) 14.9 x10^3uL Lymphocytes # (Auto) 1.7 x10^3/uL Monocytes # (Auto) 1.5 x10^3/uL Eosinophils # (Auto) 0.0 x10^3/uL Basophils # (Auto) 0.1 x10^3/uL Segmented Neutrophils % 82 % Band Neutrophils % 1 % Lymphocytes % 10 % Monocytes % 7 % Platelet Estimate Adequate Sodium Level 133 mmol/L Potassium Level 4.3 mmol/L Chloride Level 99 mmol/L Carbon Dioxide Level 27 mmol/L Anion Gap 7 Blood Urea Nitrogen 10 mg/dL Creatinine 0.9 mg/dL Estimated GFR (Cockcroft-Gault) 85.0 Glucose Level 109 mg/dL Calcium Level 10.0 mg/dL Magnesium Level 1.9 mg/dL Troponin I Quantitative < 0.017 ng/mL Group A Streptococcus Rapid Negative Current Medications Medications (Trade) Dose Ordered Sig/Marilyn Route PRN Reason Start Time Stop Time Status Last Admin Dose Admin Sodium Chloride 1,000 ml @ 1,000 mls/hr 1X ONCE IV 06/07/21 09:00 06/07/21 09:59 DC 06/07/21 09:21 Throat Lozenges (Cepacol Sore Throat Lozenge) 1 rupal PRN Q2HR PRN PO SORE THROAT 06/07/21 09:45 Fentanyl Citrate (Fentanyl 2ml Vial) 25 mcg 1X ONCE IVP 06/07/21 10:15 06/07/21 10:16 UNV EKG EKG EKG ordered and interpreted by myself at 0849 hrs. as a tachyarrhythmia at 113 bpm, unremarkable intervals, right axis deviation, no obvious ischemic findings, no STEMI EKG ordered and interpreted by myself at 1139 hrs. is sinus rhythm at 92 bpm, prolonged IN interval at 216 otherwise unremarkable intervals, no axis deviation, no STEMI Radiology/Procedures Radiology/Procedures XR CHEST 1V History: Shortness of breath Comparison: 10/03/2020 Technique: Portable AP radiograph of the chest. Findings: The lungs are adequately inflated. There is right upper lobe lucency redemonstrated, likely bullous emphysema. Linear opacities in the right lung base consistent with atelectasis. No focal consolidation. No pleural effusion or pneumothorax. Cardiac mediastinal silhouette and pulmonary vasculature are within normal limits. Calcification aortic arch. Healed fracture of the right midclavicle. Soft tissues are unremarkable. Impression: 1. Emphysematous change with linear opacities in the right lung base likely atelectasis. Electronically signed by: Timmy Kenyon MD (06/07/2021 9:42 AM) [id number] Heart Score C/O Chest Pain: No HEART Score for Chest Pain: HEART Score for Chest Pain Response (Comments) Value History Slighlty/Non-Suspicious 0 ECG Nonspecific Repolarizatio 1 Age >45 - < 65 1 Risk Factors 1 or 2 Risk Factors 1 Troponin < Normal Limit 0 Total 3 Risk Factors: Risk Factors: DM, Current or recent (<one month) smoker, HTN, HLP, family history of CAD, obesity. Risk Scores: Risk Factors: DM, Current or recent (<one month) smoker, HTN, HLP, family history of CAD, obesity. Course & Med Decision Making Course & Med Decision Making Tachycardic patient coming from snf with sore throat Comprehensive ER work-up concerning for sepsis with likely source being throat. Strep negative but this is a poor test, will await culture. In the meantime, IV azithromycin started due to penicillin allergy Patient also hypoxic, I cannot disclose etiology of this. He was initially tachycardic which could be because of [place]. Regardless, even with rate control and addressing underlying infection patient remained hypoxic on room air requiring supplemental oxygen to keep saturations up He will require admission, hospitalist at [facility] contacted and he ultimately accepted patient under his care. Patient notified of ER findings and need for admission, he was amenable. All questions and concerns addressed prior to admission Dragon Disclaimer Dragon Disclaimer This electronic medical record was generated, in whole or in part, using a voice recognition dictation system. Departure Departure: Impression: Primary Impression: Pharyngitis Additional Impressions: Sepsis Hypoxia Disposition: ADMITTED INPATIENT Condition: STABLE Referrals: PCP,NO (PCP) Problem Qualifiers GRISEL SINGLETARY DO Jun 07, 2021 08:25
[2021-06-07 09:00] LABS: BASO # 0.1 x10^3/uL (0.0-0.2); BASO % 1 % (0-3); EOS % 0 % (0-3); HEMATOCRIT 44.2 % (39.0-53.0); HEMOGLOBIN 14.4 g/dL (13.0-17.5); LYMPH # 1.7 x10^3/uL (1.0-4.8); LYMPH % 9 % (24-48); MEAN CORPUSCULAR HEMOGLOBIN 30 pg (25-35); MEAN CORPUSCULAR HGB CONC 33 g/dL (31-37); MEAN CORPUSCULAR VOLUME 92 fL (79-100); MONO # 1.5 x10^3/uL (0.0-1.1); MONO % 8 % (0-9); NEUT # 14.9 x10^3uL (1.8-7.7); NEUT % 82 % (31-73); PLATELET COUNT 304 x10^3/uL (140-400); RED BLOOD COUNT 4.81 x10^6/uL (4.30-5.70); RED CELL DISTRIBUTION WIDTH 15.7 % (11.5-14.5); WHITE BLOOD COUNT 18.2 x10^3/uL (4.0-11.0)
[2021-06-07] MEDS ORDERED: IV NORMAL SALINE 1,000ML 1,000 ML IV ONE (09:00)
[2021-06-07 09:11] LABS: CREATININE 0.9 mg/dL (0.7-1.3); POTASSIUM 4.3 mmol/L (3.5-5.1)
[2021-06-07 09:25] LABS: % BANDS 1 % (0-9); % LYMPHS 10 % (24-48); % MONOS 7 % (0-10); % SEGS 82 % (35-66); PLT ESTIMATE ADEQUATE (ADEQUATE)
--- NOTE | 2021-06-07 09:44 | RAD ---
XR CHEST 1V History: Shortness of breath Comparison: 10/03/2020 Technique: Portable AP radiograph of the chest. Findings: The lungs are adequately inflated. There is right upper lobe lucency redemonstrated, likely bullous e mphysema. Linear opacities in the right lung base consistent with atelectasis. No focal consolidation . No pleural effusion or pneumothorax. Cardiac mediastinal silhouette and pulmonary vasculature are w ithin normal limits. Calcification aortic arch. Healed fracture of the right midclavicle. Soft tissue s are unremarkable. Impression: 1. Emphysematous change with linear opacities in the right lung base likely atelectasis. Electronically signed by: Timmy Kenyon MD (06/07/2021 9:42 AM) [id number]
[2021-06-07] MEDS ORDERED: BENZOCAINE/MENTHOL LOZNGE 18'S BOX. PO PRN (09:45)
[2021-06-07] MEDS ORDERED: FAMOTIDINE 20 MG/2 ML VIAL IVP ONE (10:30)
[2021-06-07] MEDS ORDERED: AZITHROMYCIN 500 MG VIAL. IV ONE (10:42)
[2021-06-07] MEDS ORDERED: IV NORMAL SALINE 250ML 250 ML ONE (10:42)
[2021-06-07] MEDS ORDERED: METOPROLOL TARTRATE 5 MG/5 ML VIAL. IV ONE (10:45)
[2021-06-07] MEDS ORDERED: AZITHROMYCIN 500 MG in IV NORMAL SALINE 250ML 250 ML IV ONE (10:45)
[2021-06-07] MEDS ORDERED: NITROGLYCERIN SUBLINGUAL 0.4 MG BOTTLE OF 25. SL PRN (12:45)
--- NOTE | 2021-06-07 14:34 | HP ---
ADMIT DATE: 06/07/2021 ATTENDING PHYSICIAN: Dr. Bond. CHIEF COMPLAINT: Painful and difficulty swallowing. HISTORY OF PRESENT ILLNESS: The patient is a 65-year-old gentleman, shelter patient since earlier this year in August. He is a chronic alcoholic. He was quite disheveled, very reluctant to go to the shelter. He has been there for the last 9 months. He has been doing fairly well. He now has new onset 2 days now of difficulty swallowing. He has significant infection and erythema with exudate along the posterior oropharynx. He was admitted to the hospital for IV antibiotics as well as pain management. The patient states that it hurts to swallow as well as difficulty swallowing. He is mildly hypoxic. Chest x-ray showed COPD, no decompensation. He is fully vaccinated against COVID. PAST MEDICAL HISTORY: Significant for chronic alcoholism, component of Wernicke-Korsakoff syndrome, COPD, depression, gastroesophageal reflux disease and anemia. He is not diabetic. ALLERGIES: INCLUDE PENICILLIN, CODEINE, EXACT REACTION IS UNCLEAR. CURRENT MEDICATIONS: From the shelter includes the following: Tylenol, Advair Diskus, Flexeril p.r.n., ferrous sulfate, Neurontin, Imodium, Keppra, ketaconazole, Lidoderm patch, magnesium oxide, multivitamin, [employer] p.r.n. and Protonix. SOCIAL HISTORY: He was a heavy drinker. He has not drank since been at the shelter. He has a smoking history as noted, about a pack a day. FAMILY HISTORY: Unobtainable. REVIEW OF SYSTEMS: Significant for the dysphagia and painful swallowing. No recent COVID exposure. All other systems reviewed and turned to be negative. PHYSICAL EXAMINATION: GENERAL: When I saw him, this is a chronically ill-appearing gentleman. VITAL SIGNS: Initial vital signs showed a blood pressure of 122/91 mmHg, pulse ranged between 50 and 100. He was afebrile and oxygen saturation 96% on 2 liters by nasal cannula. HEENT: Head is without trauma. Pupils are reactive. Sclerae nonicteric. The oropharynx is clear. NECK: Supple, no bruits. LUNGS: Good breath auscultation. No rhonchi. CARDIOVASCULAR: Showed distant heart tones. No gallops. ABDOMEN: Soft, scaphoid, nontender, no organomegaly. Bowel sounds are hypoactive. EXTREMITIES: Show trace edema. NEUROLOGIC: Focally intact. Speech is fluent. He answers some questions appropriately. Affect is flat. PERTINENT LABORATORY STUDIES: Hemoglobin is 14.4 g/dL, white count is 18,200. Electrolytes within normal range. Cardiac enzymes were negative. CHEST X-RAY: No acute infiltrates, chronic scarring, atelectasis at the bases. ASSESSMENT: 1. A 65-year-old gentleman, shelter patient with dysphagia. 2. Odynophagia. 3. Significant pharyngitis causing symptom. 4. Chronic alcoholism. 5. Generalized debilitation. 6. Component of Wernicke-Korsakoff syndrome. 7. Degenerative arthritis. 8. Gastroesophageal reflux disease by history. PLAN: 1. Admit to the inpatient unit. 2. I have ordered intravenous antibiotics. 3. Liquid diet as tolerated. 4. If symptoms do not improve, he will need to be transferred to [place] for endoscopy given his dysphagia and odynophagia. ANABEL DR: Joby TID: [id number]
[2021-06-07] MEDS ORDERED: CYCL5TAB PO (16:48)
[2021-06-07] MEDS ORDERED: GABA-585 PO ×2 (16:48)
[2021-06-07] MEDS ORDERED: LOPE2TAB27 PO (16:48)
[2021-06-07] MEDS ORDERED: LEVE100020 PO (16:48)
[2021-06-07] MEDS ORDERED: FERR325T14 PO (16:48)
[2021-06-07] MEDS ORDERED: ACET325T21 PO (16:48)
[2021-06-07] MEDS ORDERED: MENT118G TP (16:48)
[2021-06-07] MEDS ORDERED: FLUT1DIS3 IH (16:48)
[2021-06-07] MEDS ORDERED: HYDR-2763 PO (16:49)
[2021-06-07] MEDS ORDERED: PANT40TA6 PO (16:49)
[2021-06-07] MEDS ORDERED: MAGN200T7 PO (16:49)
[2021-06-07] MEDS ORDERED: THIA100T57 PO (16:49)
[2021-06-07] MEDS ORDERED: MULT-245 PO (16:49)
[2021-06-07] MEDS ORDERED: LIDO700A21 TP (16:49)
--- NOTE | 2021-06-07 17:00 | NUR ---
Pt has abnormal vital signs: P >100, T 101.[address] Bond notified. Levaquin 750 mg IV given per MD's order. Will monitor Pt's condition.
[2021-06-07] MEDS: MORPHINE SULFATE 4 MG/ML DISP.SYRIN. IV PRN (18:00)
--- NOTE | 2021-06-07 18:48 | NUR ---
Nursing note: Pt was seen by RN. Pt alert and oriented x 4, cooperative. He kept conversation at minimal level. His voice is hoarse, has difficulty enunciating . Orientation to room amenities, safety, and unit routine provided. Dr. Bond was informed of pt's admission.
[2021-06-07 19:42] VITALS: BP 137/94
[2021-06-07] MEDS: ACETAMINOPHEN 325 MG TABLET PO PRN (21:00)
[2021-06-07 23:00] VITALS: BP 125/84
--- NOTE | 2021-06-08 00:55 | EKG ---
[address] [address] Test Date: 2021-06-07 Test Time: 08:39:52 Pat Name: MARIELOS WHITE Department: Room: 105 A Gender: M Vice President Planning: YONAS : 1955 Requested By: GRISEL SINGLETARY Order Number: [id number] Reading MD: Samm Swartz MD Measurements Intervals [place] Rate: 113 P: 243 NE: 146 QRS: 109 QRSD: 92 T: 10 QT: 298 QTc: 408 Interpretive Statements SINUS TACHYCARDIA NON-SPECIFIC ST/T CHANGES Electronically Signed On 06-10-2021 11:39:40 CDT by Samm Swartz MD
[2021-06-08] MEDS: ACETAMINOPHEN 325 MG TABLET PO PRN ×2 (01:03→05:03)
[2021-06-08] MEDS: MORPHINE SULFATE 4 MG/ML DISP.SYRIN. IV PRN ×4 (01:04→17:25)
--- NOTE | 2021-06-08 01:10 | EKG ---
[address] [address] Test Date: 2021-06-07 Test Time: 11:33:13 Pat Name: MARIELOS WHITE Department: Room: 105 A Gender: M Correctional Cook: YONAS : 1955 Requested By: GRISEL SINGLETARY Order Number: [id number] Reading MD: Samm Swartz MD Measurements Intervals [place] Rate: 92 P: 52 MO: 216 QRS: 100 QRSD: 92 T: 45 QT: 334 QTc: 418 Interpretive Statements SINUS RHYTHM PROLONGED MO INTERVAL RIGHTWARD AXIS LOW LIMB LEAD VOLTAGE T ABNORMALITY IN ANTERIOR LEADS ABNORMAL ECG Electronically Signed On 06-10-2021 10:44:30 CDT by Samm Swartz MD
[2021-06-08 05:25] VITALS: BP 147/88
[2021-06-08] MEDS ORDERED: FLU VACC QUAD 21-22 (6MOS+) PF 0.5 ML SYRINGE. VAX IM ONE (09:00)
--- NOTE | 2021-06-08 14:24 | PN ---
DATE: 06/08/2021 ATTENDING PHYSICIAN: Dr. Bond. SUBJECTIVE: The patient is alert, sober. His pharyngitis is improved. He is able to tolerate some clear liquids. OBJECTIVE FINDINGS: VITAL SIGNS: Blood pressure this morning is 125/84 mmHg, pulse is 100 and regular. He is afebrile and oxygen saturation 95% on room air. HEENT: Head is without trauma. Pupils are reactive. Sclerae nonicteric. Oropharynx clear. There is a palpable lymph node in the right neck region. I examined the oropharynx. He has 2 teeth left. The exudate in the throat is clearing. There is no tonsillar enlargement. NECK: There is no stridor or impending obstruction. Tongue is clean. LUNGS: Clear with good breath sounds. CARDIOVASCULAR: Regular heart tones. ABDOMEN: Soft. EXTREMITIES: Without edema. NEUROLOGIC: Focally alert. He is sober and quite appropriate. ASSESSMENT: 1. A 65-year-old gentleman with dysphagia. 2. Odynophagia. 3. Pharyngitis. 4. Chronic alcoholism. 5. Generalized debilitation. 6. Degenerative arthritis. 7. Gastroesophageal reflux disease. PLAN: 1. Advance diet to full liquids. 2. Continue IV antibiotics. 3. Home meds continued. 4. Pain control. YANDEL/ODESSA DR: YANDEL/shavonne TID: [id number]
[2021-06-08 15:00] VITALS: BP 107/74
[2021-06-08 19:00] VITALS: BP 112/78
[2021-06-08] MEDS: ACETAMINOPHEN 500 MG TABLET PO PRN (22:00)
[2021-06-08 23:00] VITALS: BP 125/90
[2021-06-09 05:00] VITALS: BP 104/77
[2021-06-09] MEDS: MORPHINE SULFATE 4 MG/ML DISP.SYRIN. IV PRN ×4 (05:00→22:49)
[2021-06-09] MEDS: ACETAMINOPHEN 500 MG TABLET PO PRN ×3 (06:05→22:49)
--- NOTE | 2021-06-09 09:56 | PN ---
DATE: 06/09/2021 ATTENDING PHYSICIAN: Dr. Bond. SUBJECTIVE: He is alert and sober. This is the best I have seen him since I have taken care of him. His dysphagia has improved. He is able to tolerate some solid foods and liquids. OBJECTIVE FINDINGS: VITAL SIGNS: Blood pressure this morning is 125/90, pulse is 98 and regular. He is afebrile. Oxygen saturation 97% on 3 liters, which is his baseline. HEENT: Head is without trauma. Pupils are reactive. Sclerae nonicteric. Oropharynx, I examined her throat. The exudate has cleared off. There is no stridor and it actually appears quite normal. NECK: Supple, no bruits, no masses palpated. No stridor. LUNGS: Clear. CARDIOVASCULAR: Regular heart tones. ABDOMEN: Soft. EXTREMITIES: Without edema. ASSESSMENT: 1. A 65-year-old gentleman with dysphagia. 2. Odynophagia, resolved. 3. Pharyngitis, improved. 4. Chronic alcoholism. 5. Generalized debilitation. 6. Gastroesophageal reflux disease. 7. Degenerative arthritis with recent back surgery 3 months. PLAN: 1. Advance diet. 2. Continue the antibiotics. 3. Home meds reviewed. 4. Pain control. 5. Tentative discharge plan back to the long-term tomorrow. AAKASH SOLO: YANDEL/shavonne TID: [id number]
[2021-06-09 10:52] VITALS: BP 115/65
[2021-06-09 14:37] VITALS: BP 104/74
[2021-06-09 19:30] VITALS: BP 104/69
[2021-06-09 23:19] VITALS: BP 133/85
[2021-06-10 05:35] VITALS: BP 96/64
[2021-06-10] MEDS: MORPHINE SULFATE 4 MG/ML DISP.SYRIN. IV PRN ×2 (06:43→10:55)
[2021-06-10] MEDS: ACETAMINOPHEN 500 MG TABLET PO PRN (08:18)
--- NOTE | 2021-06-10 09:26 | DS ---
ADDENDUM Total discharge time spent with discharge, [address]: Joby TID: [id number]
--- NOTE | 2021-06-10 09:26 | DS ---
DATE OF DISCHARGE: 06/10/2021 ATTENDING PHYSICIAN: Dr. Bond. FINAL DISCHARGE DIAGNOSES: 1. Severe pharyngitis, resolved. 2. Dysphagia, resolved. 3. Odynophagia, resolved. 4. Chronic alcoholism. 5. Generalized debilitation. 6. Gastroesophageal reflux disease. 7. Chronic low back pain. HISTORY AND PHYSICAL: The patient is a 65-year-old gentleman, recently went to the senior living after found at home unable to care for himself. He has been a chronic alcoholic. He has severe pharyngitis. He was admitted to the ED with difficulty swallowing and painful swallowing. PHYSICAL EXAMINATION: Please see the dictated note. PERTINENT LABORATORY AND X-RAY STUDIES: Admission hemoglobin was 14.4 g/dL, white count 18,000. Electrolytes within normal range. Creatinine was 0.9 mg/dL. Cardiac enzymes negative. Lactic acid was unremarkable. Serology negative for coronavirus. Group A strep was negative. Chest x-ray demonstrated emphysematous changes without any acute infiltrates. COURSE IN THE HOSPITAL: The patient was admitted. He was kept n.p.o. initially and diet gradually advanced. Received 3 full days of intravenous Levaquin with marked improvement. HE HAS PENICILLIN ALLERGY. Diet was able to advance. Lungs remained clear and he was back to his baseline. Odynophagia and dysphagia resolved. On the fourth hospital day, he was discharged back to [facility]. I recommended 5 more days of Levaquin 500 mg p.o. daily and then stop. Other home meds are unchanged. They include the following: Please refer to the database for the list of other medications. The patient was then discharged from our hospital in stable condition with explicit drug and followup care. SAMRA DR: Joby TID: [id number]
[2021-06-10 10:33] VITALS: BP 103/73
--- NOTE | 2021-06-10 11:41 | NUR ---
DISCHARGE Pt discharged back to [facility]. All paperwork and questions addressed with RN at facility. Prescriptions/orders placed in packet and given to route sales driver. Pt GCS 15, VSS upon DC. CC, RN
== END 2021-06-10 11:30 | DRG 153 ==
LOC: ER 08:20 → 1 SOUTH 12:37
PROVIDERS: ADMIT Hospitalist; ATTEND Hospitalist
DX: J02.9 Acute pharyngitis, unspecified (principal); K21.9 Gastro-esophageal reflux disease without esophagitis; J44.9 Chronic obstructive pulmonary disease, unspecified; M19.90 Unspecified osteoarthritis, unspecified site; F32.A Depression, unspecified; F17.210 Nicotine dependence, cigarettes, uncomplicated; R13.10 Dysphagia, unspecified; Z20.822 Contact with and (suspected) exposure to COVID-19; F10.26 Alcohol dependence with alcohol-induced persisting amnestic disorder; G89.29 Other chronic pain; R09.02 Hypoxemia; Z88.0 Allergy status to penicillin
CPT/HCPCS: 36415; 71045; 80048; 83605; 83735; 84484; 85007; 85025; 87040; 87070; 87426; 87880; 90471; 90686; 93005; 96374; 96375; J0456; J1956; J2270; J3010; J3490; J7050; U0003; 99285-25; J7030

== ENCOUNTER 2021-12-20 14:45 | Inpatient (IN) | payer MEDICARE, OTHER ==
[~2021-12-20] VITALS: Ht 180.3 cm; Wt 72.0 kg
[~2021-12-20 14:45] MED LIST: ACET325T21 PO; CYCL5TAB PO; FERR325T14 PO; FLUT1DIS3 IH; GABA-585 PO; HYDR-2763 PO; LEVE100020 PO; LIDO700A21 TP; LOPE2TAB27 PO; MAGN200T7 PO; MENT118G TP; MULT-245 PO; PANT40TA6 PO; THIA100T57 PO
[2021-12-20] MEDS ORDERED: methylPREDNISolone SOD SUCC PF 125 MG/2 ML VIAL. IV ONE (15:15)
[2021-12-20] MEDS ORDERED: IPRATRPIUM/ALBUTEROL 0.5/2.5MG 3 ML NEBU. ONE (15:27)
[2021-12-20] MEDS ORDERED: methylPREDNISolone SOD SUCC PF 125 MG/2 ML VIAL. ONE (15:28)
[2021-12-20] MEDS ORDERED: AZITHROMYCIN 500 MG in IV NORMAL SALINE 250ML 250 ML IV ONE (18:00)
[2021-12-20 19:40] LABS: CALCIUM 8.1 mg/dL (8.5-10.1); CREATININE 0.7 mg/dL (0.7-1.3); GFR 113.2; POTASSIUM 4.7 mmol/L (3.5-5.1)
[2021-12-20 19:43] LABS: ALBUMIN 1.6 g/dL (3.4-5.0); ALBUMIN/GLOBULIN RATIO 0.4 (1.0-1.7); MAGNESIUM 1.8 mg/dL (1.8-2.4); TOTAL BILIRUBIN 0.4 mg/dL (0.2-1.0); TOTAL PROTEIN 6.1 g/dL (6.4-8.2)
[2021-12-20 19:54] LABS: BASO % 0 % (0-3); EOS % 0 % (0-3); HEMATOCRIT 34.7 % (39.0-53.0); HEMOGLOBIN 11.4 g/dL (13.0-17.5); LYMPH # 0.9 x10^3/uL (1.0-4.8); LYMPH % 5 % (24-48); MEAN CORPUSCULAR HEMOGLOBIN 31 pg (25-35); MEAN CORPUSCULAR HGB CONC 33 g/dL (31-37); MEAN CORPUSCULAR VOLUME 96 fL (79-100); MONO # 1.5 x10^3/uL (0.0-1.1); MONO % 8 % (0-9); NEUT # 16.5 x10^3uL (1.8-7.7); NEUT % 87 % (31-73); PLATELET COUNT 453 x10^3/uL (140-400); RED BLOOD COUNT 3.63 x10^6/uL (4.30-5.70); RED CELL DISTRIBUTION WIDTH 15.4 % (11.5-14.5); WHITE BLOOD COUNT 18.9 x10^3/uL (4.0-11.0)
[2021-12-20 19:55] LABS: % BANDS 2 % (0-9); % BASOS 0 % (0-3); % EOS 0 % (0-5); % LYMPHS 7 % (24-48); % MONOS 5 % (0-10); % SEGS 86 % (35-66); BASO # 0.1 x10^3/uL (0.0-0.2)
[2021-12-20 19:56] LABS: PLT ESTIMATE INCREASED (ADEQUATE)
[2021-12-21 00:45] VITALS: BP 114/76
[2021-12-21] MEDS ORDERED: IPRA3AMP29 NEB (01:12)
[2021-12-21] MEDS ORDERED: TIZA-75 PO (01:12)
[2021-12-21] MEDS ORDERED: LACT1CAP6 PO (01:12)
[2021-12-21] MEDS ORDERED: FAMO20TA5 PO (01:12)
[2021-12-21] MEDS ORDERED: MIRA25TA PO (01:12)
[2021-12-21] MEDS ORDERED: CALC200T3 PO (01:12)
[2021-12-21] MEDS ORDERED: POLY2500 PO (01:12)
[2021-12-21] MEDS ORDERED: MIDO5TAB4 PO (01:12)
[2021-12-21] MEDS ORDERED: POLYETHYLENE GLYCOL 3350 17 GM PACKET. PO PRN (01:21)
[2021-12-21] MEDS ORDERED: LOPERAMIDE 2 MG CAPSULE PO PRN (01:30)
[2021-12-21] MEDS: HYDROcodone/APAP 7.5/325MG 1 TAB TABLET PO PRN ×3 (01:55→20:21)
--- NOTE | 2021-12-21 02:38 | EKG ---
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
[2021-12-21] MEDS: IPRATRPIUM/ALBUTEROL 0.5/2.5MG 3 ML NEBU. NEB SCH ×4 (06:22→19:46)
[2021-12-21] MEDS: ACETAMINOPHEN 325 MG TABLET PO PRN (07:11)
[2021-12-21] MEDS: BUDESONIDE 0.5 MG/2 ML NEBU NEB SCH ×2 (08:00→19:46)
[2021-12-21] MEDS: LACTOBACILLUS RHAMNOSUS GG 1 CAPSULE. PO SCH (08:07)
[2021-12-21] MEDS: FAMOTIDINE 20 MG TABLET PO SCH ×2 (08:07→20:21)
[2021-12-21] MEDS: levETIRAcetam 500 MG TABLET PO SCH ×2 (08:07→20:20)
--- NOTE | 2021-12-21 09:20 | HP ---
DATE OF SERVICE: 12/21/2021 ADMIT DATE: 12/20/2021 ATTENDING PHYSICIAN: Dr. Bond. CHIEF COMPLAINT: Shortness of breath. HISTORY OF PRESENT ILLNESS: This is a 66-year-old gentleman with multiple medical issues. He is well known to us from several previous admissions. In the last 6 months, he has been living at [facility] in a controlled environment. He had been living in a squalor and almost a year ago. In any event, he has increasing cough, congestion, shortness of breath. Workup in the ED showed a lobar infiltrate in the posterior segment of the right upper lobe. He was admitted then with half-way-acquired pneumonia. He continues to smoke heavily. PAST MEDICAL HISTORY: Significant for chronic alcoholism, COPD, failure to thrive, chronic anemia, generalized debilitation, degenerative arthritis. He had his right hip done. He is in process, waiting to have his left hip replaced. ALLERGIES: He has an allergy to PENICILLIN and CODEINE, exact reaction is unclear. CURRENT MEDICATIONS: At half-way include Tylenol, albuterol, calcium, Pepcid, ferrous sulfate, Neurontin, hydrocodone, lactobacillus, Keppra, Lidoderm patch, menthol, midodrine, Myrbetriq, Protonix, MiraLax and tizanidine. SOCIAL HISTORY: He is a smoker, 1-2 packs of cigarettes daily. He is a chronic alcoholic. He drinks heavily. I suspect he has quit drinking since he has been at the half-way. FAMILY HISTORY: Unobtainable. REVIEW OF SYSTEMS: Significant for the generalized debilitation. He is actually quite sober. He has chronic low back pain. He has a litany of other small complaints. He is not in any respiratory distress. All other systems reviewed and turned to be negative. PHYSICAL EXAMINATION: GENERAL: When I saw him, this is a chronically ill-appearing gentleman. VITAL SIGNS: Initial vital signs showed a blood pressure of 114/76, pulse is 90 and regular. He is afebrile. Oxygen saturation 95% on room air. HEENT: Head is without trauma. Pupils are reactive. Sclerae nonicteric. The oropharynx is clear. NECK: Supple, no bruits identified. LUNGS: Shallow respirations. CARDIOVASCULAR: Showed distant heart tones. No gallop. ABDOMEN: Soft. EXTREMITIES: Without edema. NEUROLOGIC: Focally intact. Speech is fluent. PERTINENT LABORATORY AND IMAGING STUDIES: Hemoglobin is 11.4 g/dL, white count 18,900. Electrolytes: Sodium was 133 mEq, potassium 4.7, creatinine 0.7 mg/dL, nonfasting blood sugar 115. Chest x-ray: The report is still not on the chart. I spoke with the ER physician. There is a consolidation and infiltrate in the posterior segment of the right upper lobe. ASSESSMENT: 1. A 66-year-old gentleman with a community-acquired pneumonia. 2. Chronic obstructive pulmonary disease. 3. Chronic alcoholism. 4. Anemia of chronic disease. 5. Generalized debilitation. 6. Degenerative arthritis. PLAN: 1. Admit to the inpatient unit. 2. Intravenous antibiotics in the form of Rocephin and Zithromax. 3. Some home medications continued. 4. Followup x-ray as needed. ROBERTO DR: Joby TID: [id number]
[2021-12-21 11:43] VITALS: BP 117/81
--- NOTE | 2021-12-21 13:56 | RAD ---
EXAMINATION: Chest radiograph. VIEWS: Single AP view of chest COMPARISON: Chest radiograph from 06/07/2021 INDICATION:66 years, Male, no indication given. FINDINGS: Normal cardiomediastinal silhouette. Right middle and upper lobe opacity superimposed on bullous emph ysematous changes. Linear bibasilar opacities appears relatively similar from prior favoring chronic interstitial changes. No pleural effusion or pneumothorax. No acute osseous process. IMPRESSION: Right middle and upper lobe consolidation favoring pneumonia superimposed on bullous emphysematous ch anges. Recommend follow to resolution to exclude underlying malignancy. Electronically signed by: Tam Rios DO (12/20/2021 7:40 PM) [facility]
[2021-12-21 15:14] VITALS: BP 118/79
[2021-12-21] MEDS: IBUPROFEN 600 MG TABLET. PO PRN (18:15)
[2021-12-21 19:30] VITALS: BP 121/70
[2021-12-21] MEDS: tiZANidine 4 MG TABLET. PO PRN (20:21)
[2021-12-21] MEDS ORDERED: AZITHROMYCIN 250 MG in IV NORMAL SALINE 250ML 250 ML IV SCH (21:00)
[2021-12-21 22:12] VITALS: BP 82/55
[2021-12-22] MEDS: IBUPROFEN 600 MG TABLET. PO PRN (01:51)
[2021-12-22 05:26] VITALS: BP 97/65
[2021-12-22] MEDS: ACETAMINOPHEN 325 MG TABLET PO PRN (05:26)
[2021-12-22] MEDS: tiZANidine 4 MG TABLET. PO PRN ×2 (05:26→14:14)
[2021-12-22] MEDS: IPRATRPIUM/ALBUTEROL 0.5/2.5MG 3 ML NEBU. NEB SCH ×5 (05:40→19:44)
[2021-12-22] MEDS: HYDROcodone/APAP 7.5/325MG 1 TAB TABLET PO PRN ×2 (06:43→20:05)
[2021-12-22] MEDS: LACTOBACILLUS RHAMNOSUS GG 1 CAPSULE. PO SCH (09:19)
[2021-12-22] MEDS: levETIRAcetam 500 MG TABLET PO SCH ×2 (09:19→20:05)
[2021-12-22] MEDS: FAMOTIDINE 20 MG TABLET PO SCH ×2 (09:19→20:05)
[2021-12-22] MEDS: BUDESONIDE 0.5 MG/2 ML NEBU NEB SCH ×2 (10:24→19:44)
[2021-12-22 10:51] VITALS: BP_SYST 123; BP_SYST 97; BP_DIAS 65; BP_DIAS 83
[2021-12-22 15:54] VITALS: BP 93/55
[2021-12-22 19:18] VITALS: BP 90/64
[2021-12-22] MEDS ORDERED: AZITHROMYCIN 500 MG in IV NORMAL SALINE 250ML 250 ML IV SCH (21:00)
--- NOTE | 2021-12-22 22:14 | PN ---
DATE: 12/22/2021 ATTENDING PHYSICIAN: Dr. Bond. SUBJECTIVE: He is alert. He is up and about, eating independently. He is not in any respiratory distress. OBJECTIVE FINDINGS: VITAL SIGNS: Blood pressure this morning 97/68. He is asymptomatic. He is afebrile, pulse is 62 and regular, and his oxygen saturation 94% on 2 liters. HEENT: Head is without trauma. Pupils are reactive. Sclerae nonicteric. Oropharynx is clear. NECK: Supple, no bruits identified. LUNGS: Good breath sounds. Minimal rhonchi in the right base. CARDIOVASCULAR: Showed regular heart tones. ABDOMEN: Soft. EXTREMITIES: Without edema. NEUROLOGIC FINDINGS: Sober. He is alert and oriented. Speech is fluent. ASSESSMENT: 1. A 66-year-old gentleman with [facility]-acquired pneumonia. 2. Chronic obstructive pulmonary disease with bullous emphysema. 3. Chronic alcoholism. 4. Anemia of chronic disease. 5. Generalized debilitation. 6. Degenerative arthritis and chronic pain syndrome. PLAN: 1. Continue IV antibiotics 1 more day. 2. Home meds restarted. 3. Tentative discharge back to [facility] tomorrow with completion of antibiotic regimen with p.o. meds. JULIANNE DR: Joby TID: [id number]
[2021-12-23] MEDS: HYDROcodone/APAP 7.5/325MG 1 TAB TABLET PO PRN ×2 (03:48→11:45)
[2021-12-23 06:01] VITALS: BP 90/65
[2021-12-23] MEDS: FAMOTIDINE 20 MG TABLET PO SCH (09:41)
[2021-12-23] MEDS: LACTOBACILLUS RHAMNOSUS GG 1 CAPSULE. PO SCH (09:41)
[2021-12-23] MEDS: BUDESONIDE 0.5 MG/2 ML NEBU NEB SCH (09:41)
[2021-12-23] MEDS: levETIRAcetam 500 MG TABLET PO SCH (09:41)
[2021-12-23] MEDS: IPRATRPIUM/ALBUTEROL 0.5/2.5MG 3 ML NEBU. NEB SCH (12:00)
--- NOTE | 2021-12-23 16:33 | DS ---
DATE OF DISCHARGE: 12/23/2021 ATTENDING PHYSICIAN: Dr. Bond. FINAL DISCHARGE DIAGNOSES: 1. [facility]-acquired pneumonia, right middle lobe and right upper lobe. 2. Chronic obstructive pulmonary disease with bullous emphysema. 3. Chronic alcoholism. 4. Anemia of chronic disease. 5. Generalized debilitation. 6. Degenerative arthritis and chronic pain syndrome. 7. History of seizure disorder. HISTORY AND PHYSICAL: The patient is a 66-year-old gentleman admitted with increasing shortness of breath, hypoxemia. Workup in the ED showed infiltrate in the right upper lobe and right middle lobe, consistent with community-acquired pneumonia. PHYSICAL EXAMINATION: Please see the dictated note. PERTINENT LABORATORY AND X-RAY STUDIES: X-ray studies as noted. The hemoglobin on admission was 11.4 g/dL with a white count of 18,900. This will be followed up. His electrolytes were within normal range. Nonfasting blood sugar 115. Troponins were negative. Transaminases were normal. Serology negative for coronavirus. Chest x-ray as noted. COURSE IN HOSPITAL: The patient received 3 full days of intravenous antibiotics. He did improve and he had marginal saturations on room air. He does have supplemental oxygen ordered as needed in the skilled nursing. On the morning of the 4th hospital day, he was ready for discharge. I recommended Zithromax 500 mg p.o. daily for 8 more days, then stop. In addition, we continued his calcium, ferrous sulfate, fluticasone, hydrocodone p.r.n., ipratropium, Keppra 1000 mg b.i.d., which I started 6 months ago for seizure disorder; Lidoderm patch, menthol, Protonix, MiraLax and tizanidine p.r.n. For now, I have stopped his Pepcid because he is already on a PPI. Neurontin is not needed, lactobacillus. I also stopped his loperamide, midodrine and Myrbetriq for now. These can be restarted if he needs them later. He remains a FULL CODE. The patient was then discharged from our hospital in stable condition with explicit drug and followup care. Total discharge time spent [address]: Joby TID: [id number]
== END 2021-12-23 12:55 | DRG 195 ==
LOC: ER 14:45 → 1 SOUTH 17:20
PROVIDERS: ADMIT Hospitalist; ATTEND Hospitalist
DX: J18.9 Pneumonia, unspecified organism (principal); D63.8 Anemia in other chronic diseases classified elsewhere; F10.20 Alcohol dependence, uncomplicated; F17.210 Nicotine dependence, cigarettes, uncomplicated; G40.909 Epilepsy, unspecified, not intractable, without status epilepticus; G89.4 Chronic pain syndrome; J43.9 Emphysema, unspecified; M19.90 Unspecified osteoarthritis, unspecified site; R09.02 Hypoxemia; Z96.642 Presence of left artificial hip joint; Z88.0 Allergy status to penicillin; Z88.8 Allergy status to other drugs, medicaments and biological substances; Z20.822 Contact with and (suspected) exposure to COVID-19
CPT/HCPCS: 36415; 71045; 80053; 83735; 84484; 85007; 85025; 87040; 93005; 94640; J0456; J0696; J7050; U0003; 99285-25